=== PATIENT | male | born 1965 | race Caucasian/White ===

== ENCOUNTER 2016-06-28 06:13 | Inpatient (IN) | payer MEDICAID ==
[~2016-06-28 06:13] MED LIST: Buffered Lidocaine 1% SYRIN* 3 ML/SYR SYRINGE INTRADERM ONE; Dexamethasone IV* 4 MG/ML 1 ML (4 MG) IV SLOW PU ONE; Famotidine IV* 10 MG/ML 2 ML (20 mg) IV ONE
[2016-06-28] MEDS ORDERED: Dexamethasone IV* 4 MG/ML 1 ML (4 MG) ONE (06:21)
[2016-06-28] MEDS ORDERED: Famotidine IV* 10 MG/ML 2 ML (20 mg) ONE (06:21)
[2016-06-28] MEDS ORDERED: ceFAZolin 2 GM PREMIX(*) 2 GM/50 ML BAG IVPB ONE (06:21)
[2016-06-28] MEDS ORDERED: Gabapentin CAP(*) 300 MG ONE (06:55)
[2016-06-28] MEDS ORDERED: fentaNYL* 50 MCG/ML 2 ML VIAL (100 MCG VIAL) ONE ×3 (06:55→10:07)
[2016-06-28] MEDS ORDERED: Lidocaine 1% MPF wEPI 200,000* 30 ML SDV ONE (06:55)
[2016-06-28] MEDS ORDERED: Thrombin 5,000 UNITS* 1 APPLIC KIT - topical use - TOPICAL ONE (06:55)
[2016-06-28] MEDS ORDERED: Bacitracin IV* 50,000 UNITS INJ ONE (06:56)
[2016-06-28] MEDS ORDERED: Midazolam* 1 MG/ML 5 ML VIAL (5 MG) ONE (07:15)
[2016-06-28] MEDS ORDERED: Atracurium* 10 MG/ML 10 ML VIAL ONE (07:15)
[2016-06-28] MEDS ORDERED: Propofol* 10 MG/ML 20 ML BTL IV PUSH ONE (07:15)
[2016-06-28] MEDS ORDERED: Lidocaine 2% PF* 5 ML VIAL ONE (07:15)
[2016-06-28] MEDS ORDERED: Ondansetron INJ* 2 MG/ML VIAL ONE (07:15)
[2016-06-28] MEDS ORDERED: fentaNYL* 50 MCG/ML 5 ML VIAL (250 MCG VIAL) ONE (07:15)
[2016-06-28] MEDS ORDERED: Levalbuterol 0.63MG/3ML NEB INH ONE (07:30)
[2016-06-28] MEDS ORDERED: fentaNYL* 50 MCG/ML 2 ML VIAL (100 MCG VIAL) IV SLOW PU ONE (07:31)
[2016-06-28] MEDS ORDERED: Gabapentin CAP(*) 300 MG PO ONE (07:31)
[2016-06-28] MEDS ORDERED: Levalbuterol 1.25MG/0.5ML NEB ONE (07:34)
[2016-06-28] MEDS ORDERED: DiMENhydriNATE IV* 50 MG/ML VIAL IV PUSH PRN (07:35)
[2016-06-28] MEDS ORDERED: Ondansetron INJ* 2 MG/ML VIAL IV PRN ×2 (07:35→09:49)
[2016-06-28] MEDS ORDERED: EPHEDrine (Pressors)* 50 MG/ML VIAL ONE (08:33)
[2016-06-28] MEDS ORDERED: Glycopyrrolate IV* 0.2 MG/ML 1 ML VIAL ONE (08:39)
[2016-06-28] MEDS ORDERED: Magnesium Hydroxide LIQ* 30 ML UDC PO PRN (09:49)
[2016-06-28] MEDS ORDERED: Acetaminophen TAB* 325 MG PO PRN (09:49)
--- NOTE | 2016-06-28 09:59 | RAD ---
INDICATION: Revision of ACDF COMPARISON: CT cervical spine July 31, 2009 Technique/findings: A single crosstable lateral cervical spine images is submitted. One of the images is annotated and shows retractors in place with a needle projected over the C5-C6 disc interspace.
[2016-06-28] MEDS ORDERED: glipiZIDE TAB* 5 MG PO SCH (10:00)
[2016-06-28] MEDS: fentaNYL* 50 MCG/ML 2 ML VIAL (100 MCG VIAL) IV PRN ×2 (10:11→10:20)
[2016-06-28] MEDS ORDERED: HYDROmorphone* 1 MG/ML 1 ML SYR ONE (10:24)
[2016-06-28] MEDS: HYDROmorphone* 1 MG/ML 1 ML SYR IV PRN ×3 (10:26→11:06)
[2016-06-28] MEDS ORDERED: HYDROmorphone PCA* 20 MG/20 ML PCA.SYRING ONE (11:27)
[2016-06-28] MEDS: HYDROmorphone PCA* 20 MG/20 ML PCA.SYRING PCA SCH ×2 (11:41→23:04)
--- NOTE | 2016-06-28 11:43 | RAD ---
INDICATION: Status post anterior cervical discectomy and fusion COMPARISON: Comparison is made with a prior CT of the cervical spine from October 19, 2005 and a prior MRI of the cervical spine from July 25, 2015. TECHNIQUE: Contiguous axial sections were obtained from the skull base through the T2 vertebra. Images were reconstructed in the sagittal and coronal planes. FINDINGS: There is straightening of the cervical spine. The vertebra are otherwise in normal alignment. The patient is status post anterior cervical discectomy and fusion earlier today at the C5-C6 level. There is anterior soft tissue swelling consistent with the patient's recent surgery. There is a metallic plate present anterior to the vertebral bodies transfixed with surgical screws at each level. There is a prosthesis within the intervertebral disc space. There is a small amount of air within the spinal canal and in the anterior soft tissues of the neck on the right side consistent with the patient's surgery. There is also surgical drain present anterior to the C5-C6 vertebra. The patient is status post remote cervical fusion at the C6-C7 level. There is bone graft material within the C6-C7 disc space which appears fused with the vertebral bodies. There has been removal of the hardware at this level. Evaluation of the spinal canal at the C5-C6 surgical level is limited due to metallic artifact. No gross hematoma is seen. There is moderate spinal canal narrowing at the C6-C7 level. IMPRESSION: POSTSURGICAL CHANGES DESCRIBED.
[2016-06-28] MEDS: oxyCODONE TAB* 5 MG TAB PO SCH ×4 (13:00→20:58)
[2016-06-28] MEDS ORDERED: Dextrose 50% Syringe 50 ML* 25 GM/50 ML SYRINGE IV PUSH PRN (13:00)
[2016-06-28] MEDS: Carisoprodol TAB* 350 MG PO SCH ×3 (13:01→20:59)
[2016-06-28] MEDS: Gabapentin CAP(*) 300 MG PO SCH ×2 (14:19→20:58)
[2016-06-28] MEDS ORDERED: Benzocaine/Menthol LOZ* 1 LOZENGE PO PRN (15:15)
[2016-06-28] MEDS: Insulin LISPRO* 1 UNITS UNIT SUBCUT SCH (17:07)
[2016-06-28] MEDS: Gemfibrozil TAB* 600 MG PO SCH (20:58)
[2016-06-28] MEDS ORDERED: Gabapentin CAP(*) 400 MG PO SCH (21:00)
--- NOTE | 2016-06-28 21:24 | CONS ---
MEDICAL CONSULTATION REPORT: DATE OF CONSULTATION: 06/28/16 PRIMARY CARE PROVIDER: Dr. Cat. REQUESTING PROVIDER: Dr. Dave. CONSULTING PROVIDER: TRAVIS Reaves. SUPERVISING PHYSICIAN: Ray Tee MD. CHIEF COMPLAINT: Status post C5-6 diskectomy. HISTORY OF PRESENT ILLNESS: This is a 51-year-old gentleman with a history of chronic neck and back pain as well as non-insulin dependent diabetes who underwent cervical spine surgery with Dr. Dave earlier today. Dr. Dave has requested consultation from hospitalist group regarding his diabetes management during his hospital stay. The patient uses Janumet and glipizide at home for diabetes management. The patient has been working on dietary strategies. He recently stopped drinking soda and has been drinking sparkling water instead. He also states that he recently quit drinking alcohol and is motivated to quit smoking after this hospitalization. The patient states that his fasting blood sugar is generally between 150 and 200 mg/dL and his pre-dinner glucose is usually between 200 and 300 mg/dL. The patient denies any other significant complications related to his diabetes. He is unsure of what his last hemoglobin A1c was. PAST MEDICAL HISTORY: 1. Chronic neck and back pain, followed by Dr. Melendrez for pain management. 2. Non-insulin dependent diabetes. PAST SURGICAL HISTORY: 1. Prior cervical spine surgery. 2. Colostomy with reversal for history of severe diverticulitis. 3. Tonsillectomy. 4. Hernia repair. HOME MEDICATIONS: 1. Soma 350 mg p.o. 4 times a day. 2. Neurontin 300 mg p.o. t.i.d. 3. Gabapentin 400 mg p.o. at bedtime. 4. Gemfibrozil 600 mg p.o. b.i.d. 5. Janumet , 1 tablet p.o. b.i.d. 6. Glipizide 5 mg p.o. twice daily. 7. Oxycodone 10 mg p.o. q.4 hours as needed for pain. SOCIAL HISTORY: The patient is single and lives alone. He has a greater than 30- pack-year smoking history with motivation to quit, stating that his last cigarette was at 5:30 this morning. He has now been sober for 9 months and the patient is currently unemployed, receiving disability. 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 REVIEW OF SYSTEMS: As listed above in HPI and otherwise negative. PHYSICAL EXAMINATION: Most recent vitals: Temperature is 98.2 degrees Fahrenheit, pulse 86 beats per minute, respiratory rate is 17 per minute, oxygen saturation 98% on 3 L, blood pressure 144/77 mmHg. General: This is a well-appearing middle aged gentleman in no acute distress. HEENT: Head is normocephalic and atraumatic. Neck: Surgical dressing is in place over the right anterior lateral neck. Cardiovascular: Heart has a regular rate and rhythm without murmurs, rubs, or gallops. Respiratory: Lungs are clear to auscultation without wheezes, crackles, or rhonchi. Abdomen: Soft and nontender to palpation. Extremities: No edema appreciated. Psych: The patient is alert and appropriately oriented. LABORATORY DATA: Reviewed labs from 06/21/16, which were essentially within normal limits including a CBC and basic metabolic panel. Last hemoglobin A1c available for review is June 2015, which was 8.5% at that time. IMAGING: Chest x-ray, 06/21/16, shows no acute process. EKG shows a normal sinus rhythm. ASSESSMENT AND PLAN: This is a 51-year-old gentleman with non-insulin dependent diabetes and chronic neck and back pain who underwent C5-[address] Dave earlier today. Hospitalist group has been consulted for diabetes management during his postoperative period. 1. Status post C5-6 diskectomy - management per Neurosurgery including discharge planning, pain management, and DVT prophylaxis. 2. Non-insulin dependent diabetes - from patient's description he sounds like he has moderate control of his diabetes at baseline. I recommend holding his Janumet and glipizide during his hospital stay and covering with sliding scale Humalog at mealtime. I also ordered a basic metabolic panel and hemoglobin A1c for tomorrow morning. He can likely resume his typical regimen upon discharge. He is interested in further education in regards to appropriate nutrition and a referral was initiated to a community health educator. If this is unable to take place during his hospitalization, I would recommend an outpatient referral to [facility] [place] for Healthy Living. 3. Morbid obesity with a BMI of 35. 4. Code status. The patient is full code. 5. Healthcare proxy is unknown. The patient does not have any family locally. 6. DVT prophylaxis. Per Dr. Dave, SCDs have been ordered. DISPOSITION: Hospitalist group will continue to follow along with this patient during his hospital stay. TRAVIS REAVES CC: Dr. Cat* [id number]/[facility] #: [id number] [facility]
[2016-06-29] MEDS: oxyCODONE TAB* 5 MG TAB PO SCH ×3 (01:08→09:40)
[2016-06-29 06:55] LABS: BUN/Creatinine Ratio 22.2 (8-20); Calcium 9.2 mg/dL (8.6-10.3); EGFR African American 149.2 (>60); Potassium 3.5 mmol/L (3.5-5.0)
--- NOTE | 2016-06-29 07:49 | PN ---
Progress Note - Progress Note SOAP: Subjective: [S/p revision of ACD F C6-7 and ACD F C5-6 with instrumentation. POD #1. Complains of neck soreness. Denies headache, nausea. He is eating and drinking without difficulty. He is ambulating well. ] Objective: [ Vital Signs: Temp Pulse Resp BP Pulse Ox 98.2 F 83 18 146/84 94 06/29/16 03:18 06/29/16 03:18 06/29/16 07:04 06/29/16 03:18 06/29/16 04:00 General: Alert and oriented. No distress. Neuro: Motor and sensory intact. Incision: Intact and without swelling or infection. JHON removed. Extremities: Full ROM throughout. JHON drain output 06/28/16 06/28/16 06/29/16 18:57 19:40 03:28 Output, JHON #1 20 10 10 ] Assessment: [Satisfactory post-op course. ] Plan: [1. Discharge home today. 2. Discharge instructions discussed. ]
[2016-06-29 08:34] VITALS: BP 136/76
[2016-06-29] MEDS: Carisoprodol TAB* 350 MG PO SCH (09:40)
[2016-06-29] MEDS: Gemfibrozil TAB* 600 MG PO SCH (09:41)
[2016-06-29] MEDS: Gabapentin CAP(*) 300 MG PO SCH (09:41)
[2016-06-29] MEDS: Insulin LISPRO* 1 UNITS UNIT SUBCUT SCH (09:41)
--- NOTE | 2016-06-29 10:02 | CONSULT ---
Subjective Reason for Visit: neck surgery Admission Date: 06/28/16 Glucose Level On Admission: 269 History Of Present Illness: Mr. Haynes is a 51 year old gentleman, admitted 06/28/16 for elective C5-[address] Dave. The hospitalist group was consulted as part of his postoperative care and they requested diabetes education. Mr. Haynes reports that he was diagnosed with type II diabetes in 2014. He was started on Janumet and Glipizide. He reports gaining a significant amount of weight when he started these medications, and in fact, attributes that weight gain to his poor diabetes control. He has not had any formal diabetes education. He mointors his blood glucose twice daily, at 6:00 am and 6:00 pm. He does not check a postprandial blood glucose. He was a heavy drinker, reportedly drinking 2 liters of vodka with cranberry juice a day, but stopped drinking alcohol completely 9 months ago. He reports that his blood glucose has become better controlled since abstaining from alcohol. His fasting blood glucose is typically in the 200 range. His blood glucose just before dinner is 160-230. He does not check a postprandial blood glucose. He has good hypogylcemic and hyperglycemic awareness. He has been working to improve his diet by drinking seltzer water instead of soda and not eating fast food. He smoked his last cigarette on 06/28/16 just prior to admission to the hospital, and plans on not smoking when he is discharged. He wants to quit smoking "cold turkey", as he has had negative side effects from Chantix in the past. Patient History Surgical History: Yes Surgery Procedure, Year, and Place: Surgery to remove large portion of large intestine r/t intestinal polyps, micro ulcers and perforations. c6-8 fx - titanium plates, screws, cadaver bone and lucite disk. APPENDIX 04. hernia ' . wisdom teeth extracted-. tosillectomy/ adenoids-for sleep apnea . 06/2014-COLOSTOMY D/T DIVERTICULITIS- [facility] [place]. COLOSTOMY REVERSAL 12/2015. KIDNEY STENT AND THEN REMOVED Lives With: Self Marital Status: Single Preferred/Primary Language: Yi Employed/Unemployed: Unemployed - disability Hx Tobacco Use: Yes - pt states that he smoked his last cigarette 06/28 Exercise: limited due to pain related to neck injury Review Of Systems - Review of Systems Constant: No Weight Loss, No Poor Appetite Endocrine: - - reports polyuria and polydipsia Objective Allergies Allergy/AdvReac Type Severity Reaction Status Date / Time No Known Allergies Allergy Verified 06/28/16 06:28 Home Medications Medication Instructions Recorded Confirmed Type Carisoprodol TAB* [Soma TAB*] 350 mg PO QID 03/31/14 06/28/16 History oxyCODONE TAB* [Roxycodone TAB 5 10 mg PO Q4H 06/28/14 06/28/16 History mg*] glipiZIDE TAB* [Glucotrol TAB*] 5 mg PO SEE INSTRUCTIONS 07/20/15 06/28/16 History Gemfibrozil TAB* [Lopid TAB*] 600 mg PO BID 10/19/15 06/28/16 History Gabapentin CAP(*) [Neurontin 300 300 mg PO TID 01/31/16 06/28/16 History CAP(*)] Gabapentin TAB(NF) [Neurontin 600 400 mg PO BEDTIME 01/31/16 06/28/16 History mg TAB(NF)] Sitagliptin-Metformin HCl [Janumet 1 tab PO BID 06/21/16 06/28/16 History 50-1000 mg] oxyCODONE TAB* [Roxycodone TAB 5 10 mg PO Q4H #60 tab MDD 12 06/29/16 Rx mg*] Hospital Medications: Current Medications Acetaminophen (Tylenol Tab*) 650 mg PO Q4H PRN PRN Reason: PAIN Carisoprodol (Soma Tab*) 350 mg PO QID [facility] Last Admin: 06/29/16 09:40 Dose: 350 mg Dextrose (D50w Syringe 50 Ml*) 12.5 gm IV PUSH .FOR FS < 60 - SS PRN PRN Reason: FS < 60 Gabapentin (Neurontin Cap(*)) 300 mg PO TID [facility] Last Admin: 06/29/16 09:41 Dose: 300 mg Gabapentin (Neurontin Cap(*)) 400 mg PO BEDTIME [facility] Last Admin: 06/28/16 20:58 Dose: 400 mg Gemfibrozil (Lopid Tab*) 600 mg PO BID [facility] Last Admin: 06/29/16 09:41 Dose: 600 mg Lactated Ringer's (Lactated Ringers 1000 Ml Bag*) 1,000 mls @ 75 mls/hr IV .per rate [facility] Last Admin: 06/29/16 00:19 Dose: 75 mls/hr Hydromorphone HCl (Dilaudid Electrical Prospector*) 20 mg in 20 mls @ 0 mls/hr DEVELOPER PROVER UPHOLSTERING .change Q24H [facility]; Per Protocol PRN Reason: Protocol Last Admin: 06/28/16 23:04 Dose: 0.5 mls/hr Insulin Human Lispro (Humalog*) 0 units SUBCUT AC [facility] PRN Reason: Protocol Last Admin: 06/29/16 09:41 Dose: 9 units Magnesium Hydroxide (Milk Of Magnesia Liq*) 30 ml PO DAILY PRN PRN Reason: CONSTIPATION Ondansetron HCl (Zofran Inj*) 4 mg IV Q6H PRN PRN Reason: NAUSEA/VOMITING Oxycodone HCl (Roxycodone Tab*) 10 mg PO Q4H [facility] Last Admin: 06/29/16 09:40 Dose: 10 mg Throat Lozenges (Chloraseptic Shari*) 1 shari PO Q6H PRN PRN Reason: SORE THROAT Lab Data: Sodium 132 mmol/L (133-145) L 06/29/16 06:08 Potassium 3.5 mmol/L (3.5-5.0) 06/29/16 06:08 BUN 16 mg/dL (6-24) 06/29/16 06:08 Creatinine 0.72 mg/dL (0.67-1.17) 06/29/16 06:08 Hemoglobin A1c 8.2 % (Less than 6.0) H 06/29/16 06:08 Calcium 9.2 mg/dL (8.6-10.3) 06/29/16 06:08 Vital Signs: Vital Signs 06/29/16 06/29/16 06/29/16 03:08 03:18 04:00 Temperature 36.8 C Pulse Rate 83 Respiratory 16 20 14 Rate Blood Pressure 146/84 (mmHg) O2 Sat by Pulse 99 94 Oximetry 06/29/16 06/29/16 06/29/16 05:04 06:30 07:04 Temperature Pulse Rate Respiratory 16 16 18 Rate Blood Pressure (mmHg) O2 Sat by Pulse Oximetry 06/29/16 06/29/16 06/29/16 08:14 09:40 09:41 Temperature Pulse Rate 81 Respiratory 18 18 Rate Blood Pressure 136/76 (mmHg) O2 Sat by Pulse 96 Oximetry Height: 5 ft 10 in Weight: 111.13 kg Body Mass Index (BMI): 35.2 Physical Exam General Appearance: Positive: Alert, Oriented x3, OOB Sitting In Chair Respiratory: Positive: Non-Labored Abdomin: Positive: Obese Skin: Wounds - surgical site right anterior cervial neck with dressing that is c /d/i Plan Of Care Patient's Next Step: Discharged to home per neuro Next Visit: patient will call Referral To: [facility] For Further OutPT Diabetic Training - and tobacco cessation counseling, DSME Diagnosis: type II diabetes with hyperglycemia Discharge Plan: Pt will be d/c to home per neuro. He has a significant knowledge deficit related to diabetes and nutrition. We discussed what foods contain carbohydrates and how to read nutrition labels. We discussed the recommended dietary intake of carbohydrates at meals and snacks and he was given a sample meal plan. I recommended that he continue to check his fasting blood glucose every morning, but that he also check a postprandial blood glucose. I gave him goal numbers. Adding a drug such as Trulicity instead of or in addition to Glipizide would be helpful in achieving better glucose control and helping with weight loss, and this could be discussed with the patient's PCP at a later date. I recommend that he follow up at [facility] for more in depth diabetes education , weight loss, smoking cessation and for DSME. He is interested in this and will call to schedule an appointment. Education Prior Diabetic Education: No Education Provided: Blood Glucose Monitoring, When To Seek Medical Attention Handouts Provided: living well with diabetes, 60 gram of carbohydrate meal plan, goals Goals Goals: According to the [place] [employer], the following are your goals for Hemaglobin A1C, Blood Glucose. Hemaglobin A1C * <7.0% for most * <6.5% for "healthy" * <8.0% for "Less Healthy" Blood Glucose * Fasting Blood Glucose: 80-130 mg/dl * 2 Hour Post Prandial Glucose <180 mg/dl
--- NOTE | 2016-06-29 11:05 | PN ---
Subjective Date of Service: 06/29/16 Interval History: Patient was discharged prior to re-evaluation this am. Reviewed nursing notes and vitals from overnight, no acute concerns. Objective Active Medications: Discharge/Home medications: Carisoprodol TAB* [Soma TAB*] 350 mg PO QID 03/31/14 [History Confirmed ] oxyCODONE TAB* [Roxycodone TAB 5 mg*] 10 mg PO Q4H 06/28/14 [History Confirmed 06/28/16] glipiZIDE TAB* [Glucotrol TAB*] 5 mg PO SEE INSTRUCTIONS 07/20/15 [History Confirmed 06/28/16] Gemfibrozil TAB* [Lopid TAB*] 600 mg PO BID 10/19/15 [History Confirmed ] Gabapentin CAP(*) [Neurontin 300 CAP(*)] 300 mg PO TID 01/31/16 [History Confirmed 06/28/16] Gabapentin TAB(NF) [Neurontin 600 mg TAB(NF)] 400 mg PO BEDTIME 01/31/16 [ History Confirmed 06/28/16] Sitagliptin-Metformin HCl [Janumet 50-1000 mg] 1 tab PO BID 06/21/16 [History Confirmed 06/28/16] oxyCODONE TAB* [Roxycodone TAB 5 mg*] 10 mg PO Q4H #60 tab MDD 12 06/29/16 [Rx] Vital Signs: Temp Pulse Resp BP Pulse Ox 98.2 F 81 18 136/76 96 06/29/16 03:18 06/29/16 08:14 06/29/16 09:41 06/29/16 08:14 06/29/16 08:14 Appearance: Exam was not completed Result Diagrams: 06/29/16 06:08 Assess/Plan/Problems-Billing Assessment: This is a 51 yo gentleman with uncontrolled NIDDM, obesity and chronic pain who underwent cervical spine surgery with Dr Dave yesterday. Hospitalist group was consulted for DM management. - Patient Problems (1) Cervical disc disease Comment: s/p C5/6 discectomy Discharge by neurosurgery today (2) Diabetes Comment: Non-insulin dependent Poorly controlled HgbA1c 8.2% Patient is very motivated to get better control of his DM Initiated referral to DM educator and patient will follow up at [facility] (3) Obesity Comment: BMI 35 Motivated to pursue weight loss measures (4) History of alcoholism Comment: Now sober for ~9 months (5) Chronic pain Comment: Followed by Dr Melendrez (6) Tobacco abuse disorder Comment: Patient is motivated to quit smoking He would like to do this "cold turkey", denied need for nicotine replacement during hospitalization and at discharge Status and Disposition: Discharge by neurosurgery today. No changes made to home medications. Recommend close follow up with PCP and [facility] for DM management and support smoking cessation.
--- NOTE | 2016-07-03 08:30 | OP ---
DATE OF OPERATION: 06/28/16 - ROOM #338 DATE OF : 69 PRIMARY SURGEON: Dr. Janak Dave. INSURANCE ACCOUNT REPRESENTATIVE: TRAVIS Merchant. ANESTHESIOLOGIST: Orlando Medellin MD ANESTHESIA: General. PRE-OP DIAGNOSIS: Herniated nucleus pulposus, C5-6. POST-OP DIAGNOSIS: Herniated nucleus pulposus, C5-6. OPERATIVE PROCEDURE: Revision of prior anterior cervical diskectomy and fusion C6- 7 with removal of anterior instrumentation, anterior cervical diskectomy and fusion C5-6 with anterior instrumentation, placement of PEEK graft, C5-6. DESCRIPTION OF PROCEDURE: After satisfactory general anesthesia was obtained, the patient was placed on the operating room table in the supine position with the head maintained on a donut headrest and the neck slightly extended. The anterior aspect of the cervical spine was clipped, prepped, and draped in a sterile manner for anterior cervical exposure. A skin incision was outlined at the midline, extending to the right side, distance of 3 cm. This incision was infiltrated with 1% Xylocaine with epinephrine after extending sharply to the subcutaneous tissues. A superiorly and inferiorly based subcutaneous flap was then fashioned and the platysma muscle divided along the direction of its fibers. The patient had undergone a previous anterior cervical diskectomy and a fusion at C6-7. The initial exposure revealed a plate surrounded by scar tissue, which was dissected free. An x-ray was obtained, verifying proper interspace localization, after which the plate was skeletonized and removed by first removing the screws and then the plate. Self-retaining retractors were placed to facilitate exposure at the C5-6 level. The initial step at this level was removal of the anterior two-thirds disk material, which was done with a combination of the [place] drill, angled curettes and pituitary rongeurs. [place] distractor pins were then placed in the C5 and C6 vertebral bodies and gentle disk space distraction applied. The operating microscope was then brought into the field and the remainder of the procedure done under microscopic visualization. Projecting back posteriorly, there were multiple fragments of extruded disk material causing significant cord compression. The interspace was decompressed utilizing microdissection until both the C6 nerve roots were free in their course. A PEEK graft measuring 8 mm in height and filled with bony matrix was then placed in the interspace and slightly countersunk. [employer]onic [place] plate was then selected to span from C5 to C6 and was secured into position with 14- mm and 15-mm self-drilling screws. A drain was placed in the prevertebral space and tunneled out through the right side. The subcutaneous tissues were then reapproximated with 3-0 Vicryl and the skin closed with Steri-Strips. The estimated blood loss was less than 50 cc and the final sponge, padding, and needle counts were correct. The patient was taken to the recovery room, extubated, and in stable condition. [id number]/[facility] #: [id number] [facility]ENTERLacy
--- NOTE | 2016-07-05 01:28 | DS ---
DISCHARGE SUMMARY: DATE OF ADMISSION: 06/28/16 DATE OF DISCHARGE: 06/29/16 DISCHARGE DIAGNOSES: 1. Cervical disk displacement, C5-6. 2. Diabetes. 3. History of anterior cervical diskectomy and fusion, C6-7. SPECIAL PROCEDURE: Revision of anterior cervical diskectomy and fusion, C6-7, with anterior cervica l diskectomy and fusion C5-6 with anterior instrumentation. HOSPITAL COURSE: This 51-year-old male was seen in office with complaints of persistent neck pain a nd radiculopathy that has failed to improve since previous ACDF at C6-7. Treatment was discussed an d the patient was not interested in surgery at that time. He returned 1 year later and discussed fu rther treatment options. He is admitted at this time for elective surgical intervention. On the da y of admission, he was taken to surgery, where under general anesthesia, a revision of ACDF at C6-7 with ACDF at C5-6 with instrumentation operation was carried out. Postoperatively, he was feeling w ell with oral and IV pain medication. He complained of posterior neck discomfort from the incision. He is ambulating independently. He is eating, drinking, and voiding without difficulty. On the fi rst postoperative day, the incisional drain was removed and the patient was [facility]. DISCHARGE INSTRUCTIONS: Discharge instructions including wound care and activity level were discuss ed with the patient. He will be seen in office in approximately 2 weeks for followup. DISCHARGE MEDICATIONS: None. TRAVIS MCNALLY [id number]/[facility] #: [id number]
== END 2016-06-29 10:28 | disposition home or self-care (01) | DRG 23 ==
LOC: AA 06:13 → INTOOBSV 06:13 → OBSVTOIN 09:56 → SSU 12:11
PROVIDERS: ADMIT Neurological Surgery; ATTEND Neurological Surgery
PROC: 0RG10A0 Fusion of Cervical Vertebral Joint with Interbody Fusion Device, Anterior Approach, Anterior Column, Open Approach (ICD-10-PCS; 2016-06-28)
PROC: 0PP304Z Removal of Internal Fixation Device from Cervical Vertebra, Open Approach (ICD-10-PCS; 2016-06-28)
PROC: 0RB30ZZ Excision of Cervical Vertebral Disc, Open Approach (ICD-10-PCS; principal; 2016-06-28 07:45)
DX: M50.122 Cervical disc disorder at C5-C6 level with radiculopathy (principal); E11.65 Type 2 diabetes mellitus with hyperglycemia; F17.210 Nicotine dependence, cigarettes, uncomplicated; E66.9 Obesity, unspecified; G89.29 Other chronic pain; F10.21 Alcohol dependence, in remission; Z68.35 Body mass index [BMI] 35.0-35.9, adult; Z79.891 Long term (current) use of opiate analgesic; Z79.84 Long term (current) use of oral hypoglycemic drugs; Z79.899 Other long term (current) drug therapy
CPT/HCPCS: 36415; 72020; 72125; 80048; 83036; 88300; 88304; 94760; 99252; A9270-GY; C1713; C1776; J0690; J1100; J1170; J2001; J2250; J2270; J2405; J2704; J3010

== ENCOUNTER 2016-08-13 04:24 | Emergency (ER) | payer MEDICAID ==
[2016-08-13] MEDS ORDERED: HYDROmorphone* 2 MG/ML 1 ML SYR IM ONE (04:45)
[2016-08-13] MEDS ORDERED: predniSONE TAB* 20 MG PO ONE (04:49)
[2016-08-13] MEDS ORDERED: Ketorolac INJ* 60 MG/2 ML VIAL IM ONE (05:06)
[2016-08-13 06:59] VITALS: BP 104/67
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
== END 2016-08-13 06:58 | disposition home or self-care (01) ==
LOC: ED 04:24
DX: F11.20 Opioid dependence, uncomplicated (principal); M54.30 Sciatica, unspecified side; R07.9 Chest pain, unspecified; M25.552 Pain in left hip
CPT/HCPCS: 96372; 99282; J1170; J1885; J7512

== ENCOUNTER 2017-04-14 00:59 | Emergency (ER) | payer MEDICAID ==
[2017-04-14] MEDS ORDERED: Clindamycin CAP* 150 MG PO ONE (02:06)
[2017-04-14] MEDS ORDERED: Levofloxacin TAB* 500 MG PO ONE (02:06)
[2017-04-14] MEDS ORDERED: Lidocaine 1%* 5 ML VIAL ONE (02:15)
[2017-04-14] MEDS ORDERED: Lidocaine 2% EPI 1:200000 MPF* 20 ML VIAL ONE (02:15)
[2017-04-14] MEDS ORDERED: Lidocaine 1% INJ* 10 MG/ML 30 ML SDV ONE ×2 (02:17)
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
[2017-04-14 04:18] VITALS: BP 143/80
--- NOTE | 2017-04-16 09:32 | ED ---
Progress - Progress Note Progress Note: Prelim wound cx reveals MRSA - pt started on clindamycin. No changes at this time. Re-Evaluation - Re-Evaluation First Eval Re-Evaluation Time: 03:20 Comment: Performed I&D at patient's request, see procedure note. Course/Dx - Diagnoses Provider Diagnoses: Cellulitis of right index finger
== END 2017-04-14 04:09 | disposition home or self-care (01) ==
LOC: ED 00:59
DX: L03.011 Cellulitis of right finger (principal); E11.9 Type 2 diabetes mellitus without complications; Z87.442 Personal history of urinary calculi; F41.9 Anxiety disorder, unspecified; Z87.891 Personal history of nicotine dependence
CPT/HCPCS: 10060; 87070; 87077; 87186; 87205; 99282; A9270-GY

== ENCOUNTER 2017-04-16 09:43 | Day surgery (SDC) | payer MEDICAID ==
--- NOTE | 2017-04-15 19:56 | HP ---
HISTORY AND PHYSICAL: DATE OF ADMISSION/SURGERY: 04/16/17 PROVIDER: Prachi Steele MD * (DICTATED BY TRAVIS MANTILLA) HISTORY OF PRESENT ILLNESS: Mr. Haynes is a 52-year-old male who presents today to the office for cellulitis of the right index finger. The patient states that on 04/10/17, he noticed that the finger was getting swollen and he was having trouble bending it. He states that on Saturday04/12/17, it started to become painful. He states that Saturday, he was soaking it with warm water and warm compresses when he noticed that it opened up a little and started to drain pus and clear fluid. On Saturday morning at 12: 15, he went to the urgent care where he had the abscess lanced and packed. He was diagnosed with cellulitis and placed on 2 antibiotics, clindamycin 300 mg and levofloxacin 500 mg. He was told to follow up with Orthopedics, which he is doing today. He states that he does have a cat and he has multiple scratches on his skin bilaterally. He states that he has had stiffness in the fingers for a couple of weeks, but did not think much of it until it started to worsen this past Saturday. He denies any numbness or tingling. He denies any fevers or night sweats. He does admit to some chills that occurred when he came home from the hospital on Saturday during the day, but he said that he put himself in a blanket and did not have any issue after that. PAST MEDICAL HISTORY: 1. Diabetes. 2. Chronic pain. 3. Irritable bowel syndrome. PAST SURGICAL HISTORY: 1. Tonsillectomy, early . 2. Emergency appendectomy, 2003. 3. Resection of a portion of large intestine and partial colon with placement of a colostomy bag, 2004. 4. Removal of colostomy bag and anastomosis, 2004. 5. C-spine fusion with 4-hole plate, 2005. 6. Kidney stent in 2016 for kidney stones and subsequent removal of kidney stent. 7. July 08, 2016, C-spine revision fusion with 6-hole plate. MEDICATIONS: 1. Janumet . 2. Gemfibrozil 600 mg. 3. Glipizide 5 mg. 4. Oxycodone 10 mg. 5. Soma 350 mg. 6. Gabapentin 100 mg. 7. Medical marijuana vaporized. 8. Clindamycin 300 mg. 9. Levofloxacin 500 mg. ALLERGIES: No known drug allergies. SOCIAL HISTORY: The patient was alone, has a cat and is disabled from work. He does not smoke. He does not drink, being alcohol free for 17 months. He has no illicit drug use. He admits to medical marijuana use. REVIEW OF SYSTEMS: General: The patient admits to chills. Denies fevers or night sweats. No known anesthesia problems. HEENT: The patient denies any headaches, lightheadedness or syncopal episodes. Cardiothoracic: The patient denies any chest pain, heart palpitations or edema. Pulmonary: The patient denies any shortness of breath with exertion and chronic osteopenia. GI: The patient denies any nausea, vomiting, diarrhea or constipation. : The patient denies any nocturia, urinary frequency or urgency. MSK: The patient admits to a painful right index finger with drainage and admits to chronic neck pain. Neuro: The patient denies any numbness or paresthesias. Integument: The patient denies any abrasions, lesions, rashes or open sores. PHYSICAL EXAMINATION GENERAL: The patient is alert and oriented x3 with appropriate mood and affect , appropriate dress and hygiene. HEENT: Normocephalic, atraumatic. Hearing and vision grossly intact. CARDIO: Regular rate and rhythm. Normal S1 and S2. No appreciable S3 or S4. No murmurs, rubs or gallops. PULMONARY: Lungs are clear to auscultation bilaterally with no wheezes, rales or rhonchi. MUSCULOSKELETAL: Inspection of right index finger revealed an abscess of the radial portion of the index finger between the MCP and PIP joint. There is marked swelling and erythema. Decreased range of motion. He does have a 2+ radial pulse. He is a little tender over the radial side of the wrist also. He has some erythema extending down to the wrist very lightly. IMPRESSION: Cellulitis of the right index finger. PLAN: The patient will undergo a right index finger incision and drainage tomorrow on 04/16/17. He was encouraged to continue taking his antibiotics and to stop eating at midnight tonight. The patient will return postoperatively for followup on , 04/18/17, for reevaluation. We will see the patient in the OR tomorrow. TRAVIS MANTILLA [id number]/[facility] #: [id number] [facility]CARELacy
[~2017-04-16 09:43] MED LIST changes: +Buffered Lidocaine 0.9% SYRIN* 5 ML/SYR SYRINGE INTRADERM ONE; -Buffered Lidocaine 1% SYRIN* 3 ML/SYR SYRINGE INTRADERM ONE; -Dexamethasone IV* 4 MG/ML 1 ML (4 MG) IV SLOW PU ONE; +Lidocaine 1% INJ* 10 MG/ML 30 ML SDV ONE; +Metoclopramide TAB* 10 MG PO ONE; +Naloxone* 0.4 MG/ML 1 ML VIAL IV PRN; +Ondansetron INJ* 2 MG/ML VIAL IV PRN; +fentaNYL* 50 MCG/ML 2 ML VIAL (100 MCG VIAL) IV PRN; +oxyCODONE/Acetamin 5/325 MG* TAB PO PRN
[2017-04-16] MEDS ORDERED: Famotidine IV* 10 MG/ML 2 ML (20 mg) ONE ×2 (10:04)
[2017-04-16] MEDS ORDERED: Metoclopramide TAB* 10 MG ONE ×2 (10:04)
[2017-04-16] MEDS ORDERED: ceFAZolin 2 GM PREMIX (*) 2 GM/50 ML BAG IVPB ONE ×2 (10:10)
[2017-04-16] MEDS ORDERED: Ondansetron INJ* 2 MG/ML VIAL ONE ×2 (10:56)
[2017-04-16] MEDS ORDERED: Lidocaine 2% PF * 5 ML VIAL ONE ×2 (10:56)
[2017-04-16] MEDS ORDERED: Midazolam* 1 MG/ML 2 ML VIAL (2 MG) ONE ×2 (10:56)
[2017-04-16] MEDS ORDERED: Propofol* 10 MG/ML 20 ML BTL IV PUSH ONE ×2 (10:56)
[2017-04-16] MEDS ORDERED: fentaNYL* 50 MCG/ML 2 ML VIAL (100 MCG VIAL) ONE ×2 (10:56)
[2017-04-16 12:40] VITALS: BP 109/70
--- NOTE | 2017-04-17 03:41 | OP ---
DATE OF OPERATION: 04/16/17 - [facility] DATE OF : 69 SURGEON: Prachi Steele MD ENGRAVER LETTER: TRAVIS Joe ANESTHESIA: Local MAC. PRE-OP DIAGNOSIS: Abscess of the right index finger. POST-OP DIAGNOSIS: Abscess of the right index finger. OPERATIVE PROCEDURE: I and D of the right index finger. ESTIMATED BLOOD LOSS: Zero. TOURNIQUET TIME: About 10 minutes. INDICATIONS FOR PROCEDURE: Avni is a 52-year-old male who developed an abscess on the radial aspect of his right index finger. It was incised at the [facility] but he has persistent drainage. He presents for I and D of the right index finger. DESCRIPTION OF PROCEDURE: The patient was brought to the operating room, was given a sedation anesthetic and a digital block with 10 cc of 1% plain lidocaine. The skin of his right hand and forearm was prepped and draped in the usual sterile fashion. The hand and forearm were exsanguinated and the tourniquet elevated to 250 mmHg. A longitudinal incision was made on the radial border of the index finger. We dissected bluntly through the subcutaneous tissue preserving the digital nerve and artery. The flexor tendon sheath was encountered and incised longitudinally, a very small portion. There was no pus in the flexor tendon sheath and that was consistent with his exam. The wound was copiously irrigated with a liter of saline and then loosely closed with 4-0 nylon suture and dressed with Xeroform, 4x4, Webril, and Coban. The patient tolerated the procedure well, was brought to the recovery room in good condition. [id number]/[facility] #: [id number] [facility]ALTH[facility]ARE SYSTEMLacy
== END 2017-04-16 11:57 | disposition home or self-care (01) ==
LOC: OREAST 09:43
PROVIDERS: ATTEND Orthopaedic Surgery
DX: L02.511 Cutaneous abscess of right hand (principal); E11.9 Type 2 diabetes mellitus without complications; Z79.84 Long term (current) use of oral hypoglycemic drugs; G89.4 Chronic pain syndrome; K58.9 Irritable bowel syndrome, unspecified; Z72.0 Tobacco use; M19.90 Unspecified osteoarthritis, unspecified site
CPT/HCPCS: 87070; 87073; 87077; 87186; 87205; A9270-GY; J0690; J2250; J2405; J2704; J3010

== ENCOUNTER 2017-08-22 11:24 | Day surgery (SDC) | payer MEDICAID ==
[~2017-08-22 11:24] MED LIST changes: -Famotidine IV* 10 MG/ML 2 ML (20 mg) IV ONE; -Lidocaine 1% INJ* 10 MG/ML 30 ML SDV ONE; -Metoclopramide TAB* 10 MG PO ONE; -Naloxone* 0.4 MG/ML 1 ML VIAL IV PRN; -Ondansetron INJ* 2 MG/ML VIAL IV PRN; -fentaNYL* 50 MCG/ML 2 ML VIAL (100 MCG VIAL) IV PRN; -oxyCODONE/Acetamin 5/325 MG* TAB PO PRN
[2017-08-22] MEDS ORDERED: ceFAZolin 2 GM PREMIX (*) 2 GM/50 ML BAG IVPB ONE ×3 (12:27)
[2017-08-22] MEDS ORDERED: fentaNYL* 50 MCG/ML 2 ML VIAL (100 MCG VIAL) ONE ×2 (13:03)
[2017-08-22] MEDS ORDERED: DiMENhydriNATE IV* 50 MG/ML VIAL ONE ×3 (13:03→15:21)
[2017-08-22] MEDS ORDERED: Midazolam* 1 MG/ML 5 ML VIAL (5 MG) ONE ×3 (13:03)
[2017-08-22] MEDS ORDERED: Propofol* 10 MG/ML 20 ML BTL IV PUSH ONE ×2 (13:03)
[2017-08-22] MEDS ORDERED: Bupivacaine 0.25% SDV* 30 ML ONE ×2 (13:23)
[2017-08-22] MEDS ORDERED: methylPREDNISolone ACETATE 80* 80 MG/ML 1 ML VIAL ONE ×2 (14:51)
[2017-08-22] MEDS ORDERED: Bupivacaine 0.5% SDV PF* 30ML VIAL ONE ×2 (14:57)
[2017-08-22] MEDS ORDERED: HYDROmorphone INJ* 1 MG/ML CARPUJECT SYRINGE IV PRN (15:05)
[2017-08-22] MEDS ORDERED: Ondansetron INJ* 2 MG/ML VIAL IV PRN (15:05)
[2017-08-22] MEDS ORDERED: HYDROcodone/ACETAMIN 5-325 MG* 1 TAB PO PRN (15:05)
[2017-08-22] MEDS ORDERED: fentaNYL* 50 MCG/ML 2 ML VIAL (100 MCG VIAL) IV PRN (15:05)
[2017-08-22] MEDS ORDERED: Naloxone* 0.4 MG/ML 1 ML VIAL IV PRN (15:05)
[2017-08-22] MEDS ORDERED: Ondansetron ODT TAB* 4 MG PO PRN (15:05)
[2017-08-22] MEDS ORDERED: oxyCODONE/Acetamin 5/325 MG* TAB PO PRN (15:05)
[2017-08-22] MEDS ORDERED: Ketorolac INJ* 30 MG/ML 1 ML VIAL ONE ×2 (15:21)
[2017-08-22 17:23] VITALS: BP 115/74
--- NOTE | 2017-08-23 19:42 | OP ---
OPERATIVE REPORT: DATE OF OPERATION: 08/22/17 DATE OF : 69 SURGEON: Alejandro Lion MD ELECTRONIC DRAFTER: TRAVIS Mcdonough An pastry assistant was needed for the entirety of the case to help with positioning, retraction, and was utilized throughout all portions of the case. ANESTHESIOLOGIST: Dr. Lange. ANESTHESIA: General interscalene block. PRE-OP DIAGNOSES: Left shoulder calcific tendinitis with impingement and bicipital tendinitis. POST-OP DIAGNOSES: Left shoulder calcific tendinitis with impingement and superior labral tear with bicipital tendinitis. OPERATIVE PROCEDURE: COMPLICATIONS: None. ESTIMATED BLOOD LOSS: Minimal. IMPLANTS USED: One P[employer]hew Q-Fix 2.8 mm anchor. INDICATIONS: Avni Haynes is a 52-year-old male who has had calcific tendinitis and persistent left shoulder impingement along with biceps symptoms. He has failed conservative management and elected to proceed with surgical treatment. Risks and benefits of the surgery were discussed at length included , but not limited to bleeding, infection, damage to nerves, vessels, surrounding structures, wound nonhealing, persistent pain, need for further surgery, scarring, stiffness, incomplete relief of symptoms, and risk of anesthesia. DESCRIPTION OF PROCEDURE: The patient was greeted in the preoperative area by the attending surgeon. The correct extremity was marked and consent was confirmed. The patient then underwent interscalene nerve block by anesthesiologist, after which he was brought back to the operating suite. He was placed in supine position on the operating table. He then underwent general anesthesia with endotracheal intubation, after which he was placed in the right lateral decubitus position with an axillary roll. All bony prominences were padded and secured with peg board and left shoulder was draped unsterile with 10 pounds of traction. Left shoulder was then prepped and draped in the usual sterile fashion beginning with chlorhexidine soap, scrub, and alcohol wipe and a final prep with ChloraPrep. After appropriate surgical pause indicating side, site, procedure, administration of antibiotics, the 11 blade was used to make a posterolateral incision. The scope was introduced into the joint. Joint was examined. There was abundant hyperemia and erythema. There is evidence of type 2 SLAP tear with displacement. The biceps was subluxed. The undersurface of the supraspinatus was intact. Subscapularis had mild fraying. There was some mild glenohumeral wear and tear. The anterior portal was made in an outside-in fashion. The inferior recess was intact. The humeral head had grade 0 to 1 changes. The glenoid had grade 1 to 2 changes with small areas of unstable flaps. Shaver was used to debride the unstable flaps as well as the anterior, posterior, and superior labrum. Biceps was then tenotomized for tenodesis due to the SLAP tear. There was abundant synovitis anteriorly, which was carefully protected as to not cause aggressive bleeding. After the intra-articular portion was done, attention was directed to the subacromial space. The scope was positioned in the subacromial space. The lateral portal was made in an outside-in fashion. There was abundant thick bursa that was present. The shaver was used to debride the bursa back, which is very thick and particularly posteriorly based. The undersurface of the acromion was skeletonized using electrocautery device and then 4-0 oval soha was then used to do an acromioplasty as there was a subtle anterolateral spur. At this point , the cuff was then probed with a probe. It was found to be intact and there was area of calcific lesion, which was then accessed with the 18-gauge spinal needle. Small fenestration holes were then made in the cuff to try to disrupt the calcium. This has been milked out and some small amount was exposed. At this point, the subacromial work was completed and then 18- gauge needle was placed under arthroscopic guidance. The wounds were irrigated and attention was directed to the biceps. The bed was airplaned to the left side. The anterior aspect of the shoulder was prepped again using ChloraPrep. The 15 blade was used to make an incision in line with the biceps tendon. The soft tissues were carefully exposed to expose the pec fascia, which was elevated and exposed back down to the biceps tendon and biceps groove. The biceps was brought through the wound and found to have abundant erythema and synovitis. Groove was then prepared in the usual fashion using electrocautery device, the red ball rasp and osteotome, after which the Q-Fix guide was used to drill unicortically. The Q-Fix was deployed with excellent purchase. Sutures were then passed through the tendon approximately 1 cm proximal to the musculotendinous junction in a Anibal-Josiah type configuration. The excess stump was excised and the biceps was shuttled back into the wound and tied down. The wounds were then copiously irrigated with sterile saline. Anterior wound was closed in layers with 2-0 Vicryl and 3- 0 Monocryl. The portals were closed with 3- 0 nylon. The anterior wound was then injected with 15 cc of 0.5% Marcaine plain. The subacromial space was injected with 80 mg of Depo-Medrol. Sterile dressings were applied. A Cryo/ Cuff and UltraSling were applied. He was awoken from anesthesia and transferred to PACU in stable condition. POSTOPERATIVE PLAN: He will be nonweightbearing. He will be in a sling for 4 weeks. He will be discharged on pain medications and antibiotics. DVT prophylaxis considered, but deferred due to no previous personal or family history. I will see the patient back in 10 to 14 days. [id number]/[facility] #: [id number] ETHAN
== END 2017-08-22 17:50 | disposition home or self-care (01) ==
LOC: OR 11:24
PROVIDERS: ATTEND Orthopaedic Surgery
DX: M75.42 Impingement syndrome of left shoulder (principal); M75.22 Bicipital tendinitis, left shoulder; M75.82 Other shoulder lesions, left shoulder; E11.9 Type 2 diabetes mellitus without complications; Z79.84 Long term (current) use of oral hypoglycemic drugs; G89.18 Other acute postprocedural pain; F17.210 Nicotine dependence, cigarettes, uncomplicated; I10 Essential (primary) hypertension; E66.01 Morbid (severe) obesity due to excess calories; E78.2 Mixed hyperlipidemia; Z68.36 Body mass index [BMI] 36.0-36.9, adult; F41.0 Panic disorder [episodic paroxysmal anxiety]; M54.16 Radiculopathy, lumbar region; M50.90 Cervical disc disorder, unspecified, unspecified cervical region
CPT/HCPCS: C1776; J0690; J1040; J1240; J1885; J2250; J2704; J3010

== ENCOUNTER → 2018-03-26 06:30 | Day surgery (SDC) | payer MEDICAID ==
--- NOTE | 2018-03-24 20:06 | HP ---
PREOPERATIVE HISTORY AND PHYSICAL: DATE OF ADMISSION/SURGERY: 03/26/18 DATE OF OFFICE VISIT: 03/21/18 ATTENDING SURGEON: Dr. Alejandro Lion.* (DICTATED BY TRAVIS ESQUIVEL) PROCEDURE: Left shoulder revision arthroscopic decompression, debridement, and possible rotator cuff repair. CHIEF COMPLAINT: Left shoulder. HISTORY OF PRESENT ILLNESS: Avni is a 53-year-old male who presents to the clinic for left shoulder pain due to a rotator cuff tear. He has had a prior rotator cuff repair. He has failed conservative measures and therefore agreed to undergo left shoulder revision arthroscopic decompression, debridement, and possible rotator cuff repair with Dr. Lion on 03/26/18. PAST MEDICAL HISTORY: 1. Hyperlipidemia. 2. Diabetes. 3. Osteoarthritis. 4. Diverticulitis. 5. History of alcohol abuse, sober since 2015. 6. Cervical spine disease. PAST SURGICAL HISTORY: 1. Left shoulder arthroscopy with decompression, debridement, and biceps tenotomy. 2. Neck surgery in 2017. 3. Abdominal surgery x3 with an ileostomy and reversal. 4. Neck surgery in 2005. 5. [place] teeth surgery. 6. Tonsillectomy and adenoidectomy. 7. Appendectomy in 2003. 8. Kidney stents. 9. Right second finger I and D. 10. Recently had 2 teeth pulled. The patient denies prior complications from anesthesia. FAMILY HISTORY: He denies pertinent family history. SOCIAL HISTORY: He lives alone. He does not work. He smokes 5 cigarettes a week. He denies alcohol consumption. He has been sober since 2016. He is right -hand dominant. REVIEW OF SYSTEMS: A 14-point review of systems was reviewed with the patient. Positive for current complaint, otherwise negative. Denies fevers, chills, chest pain, shortness of breath, history of DVT or PE, history of bleeding disorder. PHYSICAL EXAMINATION GENERAL: A 53-year-old well-developed, well-nourished male, in no acute distress. Alert and oriented x3. VITAL SIGNS: Height 70, weight 253, blood pressure 120/66, respiratory rate 18 , BMI 36.3. HEENT: Normocephalic, atraumatic. PERRLA. Throat: Clear. NECK: Supple. PULMONARY: Lungs are clear to auscultation bilaterally. No wheezing, rhonchi, or rales. CARDIO: Regular rate and rhythm. S1, S2. No murmurs, gallops, or rubs. No edema. ABDOMEN: Positive bowel sounds, soft, nontender. NEURO: Alert and oriented x3. Cranial nerves grossly intact. Sensation is intact to light touch. MUSCULOSKELETAL: Left upper extremity, skin is intact. No warmth or erythema. Well-healed incision. Nontender about the AC joint. Forward flexion and abduction 145, external rotation to 40, internal rotation to posterior iliac spine. Pain with rotator cuff testing. Positive impingement, Speed, Kovacs- Narinder, [place]. +2 radial pulse. Sensation intact to light touch distally. DIAGNOSTIC STUDIES: MRI revealed no evidence of full-thickness tear of the rotator cuff; however, he does have recurrence of bursitis. IMPRESSION: Left shoulder impingement, possible rotator cuff tear. PLAN: The patient is scheduled to undergo a left shoulder revision arthroscopic decompression, debridement, and possible rotator cuff repair with Dr. Lion on 03/26/18. Oxycodone will be used for postop pain management in addition to his chronic pain meds and Keflex will be used for antibiotic prophylaxis since the patient has had prior surgeries. He will follow up in 10 to 14 days postop for followup and suture removal. TRAVIS ESQUIVEL [id number]/[facility] #: [id number] MTDD
[~2018-03-26 06:30] MED LIST changes: +Atracurium* 10 MG/ML 10 ML VIAL ONE; +Dexamethasone IV* 4 MG/ML 1 ML (4 MG) IV SLOW PU ONE; +Dexamethasone IV* 4 MG/ML 1 ML (4 MG) ONE; +DiMENhydriNATE IV* 50 MG/ML VIAL IV PUSH PRN; +EPHEDrine (Pressors)* 50 MG/ML VIAL ONE; +Famotidine IV* 10 MG/ML 2 ML (20 mg) ONE; +Famotidine TAB* 20 MG ONE; +Famotidine TAB* 20 MG PO ONE; +HYDROmorphone INJ1* 1 MG/ML SYRINGE IV PRN; +Insulin REGULAR(*) 1 UNITS UNIT IV PUSH ONE; +Insulin REGULAR(*) 1 UNITS UNIT ONE; +Lactated Ringers 1000 ML Bag* 1,000 ML IV SCH; +Lidocaine 2% PF * 5 ML VIAL ONE; +Midazolam* 1 MG/ML 10 ML VIAL (10 MG) ONE; +Naloxone* 0.4 MG/ML 1 ML VIAL IV PRN; +Ondansetron INJ* 2 MG/ML VIAL IV PRN; +Phenylephrine INJ* 10 MG/ML 1 ML VIAL (10 MG) ONE; +Propofol* 10 MG/ML 20 ML BTL ONE; +ROPIVACAINE 5 MG/ML 30 ML BTL (0.5%) ONE; +Ropivacaine* 2 MG/ML 20 ML VIAL (0.2%) ONE; +ceFAZolin 2 GM PREMIX in ORs 2 GM/50 ML BAG IVPB ONE; +fentaNYL* 50 MCG/ML 2 ML VIAL (100 MCG VIAL) IV PRN; +fentaNYL* 50 MCG/ML 2 ML VIAL (100 MCG VIAL) ONE; +fentaNYL* 50 MCG/ML 5 ML VIAL (250 MCG VIAL) ONE; +oxyCODONE/Acetamin 5/325 MG* TAB ONE
[2018-03-26] MEDS: oxyCODONE/Acetamin 5/325 MG* TAB PO PRN ×2 (11:01→11:02)
[2018-03-26 12:11] VITALS: BP 124/76
--- NOTE | 2018-03-26 20:27 | OP ---
OPERATIVE REPORT: DATE OF OPERATION: 03/26/18 DATE OF : 69 SURGEON: Alejandro Lion MD FLY RAIL OPERATOR: TRAVIS Mcdonough An optical assistant was needed for entirety of the case to help with positioning, retraction, and was utilized throughout all portions of case. ANESTHESIOLOGIST: Dr. Medellin. ANESTHESIA: General interscalene block. PRE-OP DIAGNOSIS: Left shoulder high-grade partial-thickness tear of the rotator cuff, persistent pain. POST-OP DIAGNOSIS: Left shoulder high-grade partial-thickness tear of the rotator cuff, persistent pain. OPERATIVE PROCEDURE: Revision left shoulder arthroscopy with: 1. Lysis of adhesions and glenohumeral debridement. 2. Revision of subacromial decompression with acromioplasty. 3. Rotator cuff repair using Regeneten patch. COMPLICATIONS: None. ESTIMATED BLOOD LOSS: Minimal. IMPLANTS USED: One Perales and Nephew Regeneten patch. INDICATIONS: Avni Haynes is a 53-year-old male who underwent previous arthroscopy with decompression, debridement, and biceps tenodesis. He did okay for a while, but he continued to have pain and discomfort. He also had some component of adhesive capsulitis. The risks and benefits of surgery were discussed at length which included, but are not limited to, bleeding; infection ; damage to nerve, vessels, surrounding structures; wound nonhealing; persistent pain; need for surgery; scaring; stiffness; incomplete relief of symptoms; risks of anesthesia. DESCRIPTION OF PROCEDURE: The patient was greeted in the preoperative area by the attending surgeon. The correct extremity was marked and the consent was confirmed. The patient underwent interscalene nerve block by anesthesiologist, after which he was brought back to the operating suite, where he was placed in supine position on the operating table. He then underwent general anesthesia with endotracheal intubation, after which he was positioned in the right lateral decubitus position with an axillary roll. All bony prominences were padded. He was secured with a pegboard. The left arm was draped unsterile with 10 pounds of traction. The left shoulder was prepped and draped in the usual sterile fashion beginning with chlorhexidine soap, scrub, and alcohol wipe and a final prep with ChloraPrep. After appropriate surgical pause indicating site, side, procedure, and administration of antibiotics, the standard posterolateral portal was made sharply with an 11 blade. The scope was introduced into the joint. There was significant scar tissue in the joint. The anterior portal was made in an outside-in fashion. Shaver was used to debride the undersurface of the rotator cuff, which had partially this tearing, as well as the anterior and posterior labrum. The electrocautery device was used to release lot of the adhered scar tissue with care to protect the subscap. The interval tissue was released as well as the tissue anteriorly extending all the way to 6 o'clock position. Once this was completed, attention was directed to the subacromial space. The scope was positioned in the subacromial space. The lateral portal was made in an outside-in fashion. Shaver was used to debride back the recurrent bursa. There was thick tissue. The electrocautery device was used to skeletonize the acromion again and remove any of the thick adhesive issue. A small acromioplasty was done for the small remaining slight spur that was left. The cuff was then carefully probed and found to be intact. Decision was made to do a Regeneten patch. The Regeneten was brought to the field and placed under arthroscopic visualization. Through a separate incision, a cannula was placed for facilitation of tendon panda. At this point, the patch was then secured medially with the tendon panda. Once this was done, it was secured laterally with bone panda. Final images were obtained. The shoulder was taken through gentle range of motion. The wounds were copiously irrigated with sterile saline. The portals were closed with nylon. Sterile dressings were applied. He was awoken from anesthesia and transferred to the PACU in stable condition. POSTOPERATIVE PLAN: He will be in a sling for few days. He will be discharged on pain medication. He will start therapy next week. DVT prophylaxis was considered but deferred due to no previous personal or family history. [id number]/[facility] #: [id number] ETHAN
== END | disposition home or self-care (01) ==
LOC: OR 06:30
PROVIDERS: ATTEND Orthopaedic Surgery
DX: M75.112 Incomplete rotator cuff tear or rupture of left shoulder, not specified as traumatic (principal); E11.9 Type 2 diabetes mellitus without complications; F17.210 Nicotine dependence, cigarettes, uncomplicated; E78.5 Hyperlipidemia, unspecified; F10.11 Alcohol abuse, in remission; M19.90 Unspecified osteoarthritis, unspecified site; Z79.891 Long term (current) use of opiate analgesic; G89.18 Other acute postprocedural pain
CPT/HCPCS: A9270-GY; C1713; J0690; J1100; J2250; J2704; J2795; J3010

== ENCOUNTER 2018-09-20 02:22 | Emergency (ER) | payer MEDICAID ==
--- OUTSIDE RECORDS SUMMARY | 2018-09-20 02:53 | XMS REPORT | Continuity of Care Document ---
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 150-450 Mean Platelet Volume 8.5 um3 N 7.4-10.4 Abs Neutrophils 3.8 10^3/uL N 1.5-7.7 Abs Lymphocytes 3.4 10^3/uL N 1.0-4.8 Abs Monocytes 0.5 10^3/uL N 0-0.8 Abs Eosinophils 0.1 10^3/uL N 0-0.6 Abs Basophils 0 10^3/uL N 0-0.2 Abs Nucleated RBC 0 10^3/uL Granulocyte % 48.3 % N 38-83 Lymphocyte % 43.5 % N 25-47 Monocyte % 6.4 % N 0-7 Eosinophil % 1.2 % N 0-6 Basophil % 0.6 % N 0-2 Nucleated Red Blood Cells % 0.1 Basic Metabolic 08/16/2017 [facility] Sodium 136 mmol/L Low 139-[address] [place] [address] [phone] Potassium 4.2 mmol/L N 3.5-5.0 Chloride 100 mmol/L Low 101-111 Co2 Carbon Dioxide 25 mmol/L N 22-32 Anion Gap 11 mmol/L N 2-11 Glucose 223 mg/dL High 70-100 Blood Urea Nitrogen 14 mg/dL N 6-24 Creatinine 0.70 mg/dL N 0.67-1.17 BUN/Creatinine Ratio 20.0 N 8-20 Calcium 9.9 mg/dL N 8.6-10.3 Egfr Non- 119.4 >60 Egfr 153.5 >60 63 Laboratory test 08/16/2017 [facility] Hemoglobin A1c 8.2 % High 4.0-5.6 [address] (Glyco HGB) [place] [address] [phone] Urine 08/16/2017 [facility] Ur Microalbumin 93.[address] (mg/L) mg/[place] [address] [phone] Urine Creatinine 114.22 mg/dL Urine Microalbumin/Creatinine 82.1 ug/mg High <31 Lipid Profile 07/08/2017 [facility] Triglycerides 393 mg/dL 65 (Trig/Chol/HDL) [address] [place] [address] [phone] Cholesterol 198 mg/dL 66 HDL Cholesterol 37.2 mg/dL 67 LDL Cholesterol 82 mg/dL 68 Wound 04/16/2017 [facility] Wound/Misc SEE RESULT 69 Culture/Sensi [address] [place] [address] Stain [phone] Laboratory test 04/16/2017 [facility] Anaerobic Culture SEE RESULT [address] [place] [address] [phone] Laboratory test 04/16/2017 [facility] Point of Care 231 mg/dL High 70-1 [address] Glucose 00 [place], [place] [address] [phone] Wound 04/14/2017 [facility] Wound/Misc SEE RESULT 72 Culture/Sens[facility] [address] [place] [address] Stain [phone] Laboratory test 02/05/2017 [facility] [employer] [facility] Hemoglobin A1c 7.6 High 5-7 finding Lipid Profile 01/08/2017 [facility] Triglycerides 561 mg/dL N 73 (Trig/Chol/HDL) [address] [place], [place] [id number] [phone] Cholesterol 182 mg/dL N 74 HDL Cholesterol 34.4 mg/dL N 75 LDL Cholesterol (SEE NOTE) mg/dL N 76 Laboratory 01/08/2017 [facility] Hepatitis C Nonreactive N Nonreactive 77 test finding [address] Antibody [place], [place] [id number] [phone] LDL Cholesterol Direct 80 mg/dL N 78 Laboratory test 11/05/2016 [facility] [employer] [facility] Hemoglobin A1c 7.0 5-7 finding Urine Microalbumin 08/03/2016 [facility] Urine Creatinine 192.48 mg/dL N Random [address] [place] [address] [phone] Ur Microalbumin (mg/L) 64.5 mg/L N Urine Microalbumin/Creatinine 33.5 ug/mg High <31 Laboratory test 08/03/2016 [employer] [facility] Hemoglobin A1c 7.9 High 5-7 finding Basic Metabolic 06/21/2016 [facility] Sodium 137 mmol/L N 133- 145 [address] [place], [place] [id number] [phone] Potassium 4.2 mmol/L N 3.5-5.0 Chloride 100 mmol/L Low 101-111 Co2 Carbon Dioxide 29 mmol/L N 22-32 Anion Gap 8 mmol/L N 2-11 Glucose 193 mg/dL High 70-100 Blood Urea Nitrogen 14 mg/dL N 6-24 Creatinine 0.71 mg/dL N 0.67-1.17 BUN/Creatinine Ratio 19.7 N 8-20 Calcium 9.8 mg/dL N 8.6-10.3 Egfr Non- 117.9 N >60 Egfr 151.6 N >60 80 CBC No Diff 06/21/2016 [facility] White Blood 7.6 10^3/uL N 3.5-10.[address] [place] [address] [phone] Red Blood Count 4.60 10^6/uL N 4.0-5.4 Hemoglobin 13.9 g/dL Low 14.0-18.0 Hematocrit 40 % Low 42-52 Mean Corpuscular Volume 87 fL N 80-94 Mean Corpuscular Hemoglobin 30 pg N 27-31 Mean Corpuscular HGB Conc 35 g/dL N 31-36 Red Cell Distribution Width 14 % N 10.5-15 Platelet Count 218 10^3/uL N 150-450 Mean Platelet Volume 9 um3 N 7.4-10.4 Laboratory test 04/12/2016 [facility] [employer] [facility] Hemoglobin A1c 9.2 High 5-7 finding Lipid Profile 04/10/2016 [facility] Triglycerides 487 mg/dL N 81 (Trig/Chol/HDL) [address] [place] [address] [phone] Cholesterol 189 mg/dL N 82 HDL Cholesterol 35.8 mg/dL N 83 LDL Cholesterol (SEE NOTE) mg/dL N 84 Lipid Profile 02/29/2016 [facility] Triglycerides 356 mg/dL N 85 (Trig/Chol/HDL) [address] [place] [address] [phone] Cholesterol 171 mg/dL N 86 HDL Cholesterol 36.9 mg/dL N 87 LDL Cholesterol 63 mg/dL N 88 Comp Metabolic Panel 02/29/2016 [facility] Sodium 133 mmol/L N 133-[address] [place] [address] [phone] Potassium 4.4 mmol/L N 3.5-5.0 Chloride 99 mmol/L Low 101-111 Co2 Carbon Dioxide 25 mmol/L N 22-32 Anion Gap 9 mmol/L N 2-11 Glucose 229 mg/dL High 70-100 Blood Urea Nitrogen 15 mg/dL N 6-24 Creatinine 0.71 mg/dL N 0.67-1.17 BUN/Creatinine Ratio 21.1 High 8-20 Calcium 9.6 mg/dL N 8.6-10.3 Total Protein 7.6 g/dL N 6.4-8.9 Albumin 4.4 g/dL N 3.2-5.2 Globulin 3.2 g/dL N 2-4 Albumin/Globulin Ratio 1.4 N 1-3 Total Bilirubin 0.50 mg/dL N 0.2-1.0 Alkaline Phosphatase 80 U/L N 34-104 Alt 17 U/L N 7-52 Ast 14 U/L N 13-39 Egfr Non- 117.9 N >60 Egfr 151.6 N >60 89 Laboratory test 01/19/2016 [facility] [employer] [facility] Hemoglobin A1c 6.7 5-7 finding Laboratory test 12/01/2015 [facility] Point of Care 122 mg/dL High 74-106 [address] [place] [address] [phone] CBC Auto Diff 11/30/2015 [facility] White Blood Count 9.1 N 3.5-10.[address] 10^3/[place] [address] [phone] Red Blood Count 4.14 10^6/uL N 4.0-5.4 Hemoglobin 13.3 g/dL Low 14.0-18.0 Hematocrit 39 % Low 42-52 Mean Corpuscular Volume 93 fL N 80-94 Mean Corpuscular Hemoglobin 32 pg High 27-31 Mean Corpuscular HGB Conc 34 g/dL N 31-36 Red Cell Distribution Width 15 % N 10.5-15 Platelet Count 186 10^3/uL N 150-450 Mean Platelet Volume 9 um3 N 7.4-10.4 Abs Neutrophils 6.0 10^3/uL N 1.5-7.7 Abs Lymphocytes 2.2 10^3/uL N 1.0-4.8 Abs Monocytes 0.8 10^3/uL N 0-0.8 Abs Eosinophils 0.1 10^3/uL N 0-0.6 Abs Basophils 0.1 10^3/uL N 0-0.2 Abs Nucleated RBC 0.07 10^3/uL N Granulocyte % 65.2 % N 38-83 Lymphocyte % 24.1 % Low 25-47 Monocyte % 8.7 % N 1-9 Eosinophil % 1.3 % N 0-6 Basophil % 0.7 % N 0-2 Nucleated Red Blood Cells % 0.7 N Urinalysis Profile 11/30/2015 [facility] Urine Color Yellow N [address] [place] [address] [phone] Urine Appearance Turbid N Urine Specific [place] 1.031 High 1.010-1.030 Urine pH 5.0 N 5-9 Urine Urobilinogen Negative N Negative Urine Ketones Negative N Negative Urine Protein 1+(30 mg/dL) Abnormal Negative Urine Leukocytes Negative N Negative Urine Blood 2+ Abnormal Negative Urine Nitrite Negative N Negative Urine Bilirubin Negative N Negative Urine Glucose 3+(>=500 mg/dL) Abnormal Negative Urine White Blood Cell Absent N Absent Urine Red Blood Cell 3+(>10/hpf) Abnormal Absent Urine Bacteria 1+ Abnormal Absent Comp Metabolic Panel 11/30/2015 [facility] Sodium 137 mmol/L N 133-145 [address] [place] [address] [phone] Potassium 4.0 mmol/L N 3.5-5.0 Chloride 104 mmol/L N 101-111 Co2 Carbon Dioxide 25 mmol/L N 22-32 Anion Gap 8 mmol/L N 2-11 Glucose 128 mg/dL High 70-100 Blood Urea Nitrogen 21 mg/dL N 6-24 Creatinine 1.06 mg/dL N 0.67-1.17 BUN/Creatinine Ratio 19.8 N 8-20 Calcium 9.4 mg/dL N 8.6-10.3 Total Protein 7.4 g/dL N 6.4-8.9 Albumin 4.5 g/dL N 3.2-5.2 Globulin 2.9 g/dL N 2-4 Albumin/Globulin Ratio 1.6 N 1-3 Total Bilirubin 0.50 mg/dL N 0.2-1.0 Alkaline Phosphatase 52 U/L N 34-104 Alt 23 U/L N 7-52 Ast 15 U/L N 13-39 Egfr Non- 74.6 N >60 Egfr 95.9 N >60 91 Laboratory test finding 11/30/2015 [facility] Lipase 35 U/L N 11.0-82.[address] [place] [address] [phone] C Reactive Protein 7.26 mg/L High < 5.00 92 Lactic Acid 1.5 mmol/L N 0.5-2.0 93 Urine Culture And 11/30/2015 [facility] Urine Culture SEE RESULT [address] [place] [address] [phone] Laboratory test 11/30/2015 [facility] Blood Culture SEE RESULT [address] [place] [address] [phone] Urinalysis Profile 11/30/2015 [facility] Urine Color Yellow N [address] [place] [address] [phone] Urine Appearance Cloudy N Urine Specific [place] 1.027 N 1.010-1.030 Urine pH 5.0 N 5-9 Urine Urobilinogen Negative N Negative Urine Ketones Trace Abnormal Negative Urine Protein 1+(30 mg/dL) Abnormal Negative Urine Leukocytes Negative N Negative Urine Blood 3+ Abnormal Negative Urine Nitrite Negative N Negative Urine Bilirubin Negative N Negative Urine Glucose 3+(>=500 mg/dL) Abnormal Negative Urine White Blood Cell Trace(0-5/hpf) N Absent Urine Red Blood Cell 3+(>10/hpf) Abnormal Absent Urine Bacteria Absent N Absent Comp Metabolic Panel 11/30/2015 [facility] Sodium 139 mmol/L N 133-[address] [place] [address] [phone] Potassium 3.6 mmol/L N 3.5-5.0 Chloride 102 mmol/L N 101-111 Co2 Carbon Dioxide 28 mmol/L N 22-32 Anion Gap 9 mmol/L N 2-11 Glucose 269 mg/dL High 70-100 Blood Urea Nitrogen 17 mg/dL N 6-24 Creatinine 0.79 mg/dL N 0.67-1.17 BUN/Creatinine Ratio 21.5 High 8-20 Calcium 9.8 mg/dL N 8.6-10.3 Total Protein 7.5 g/dL N 6.4-8.9 Albumin 4.6 g/dL N 3.2-5.2 Globulin 2.9 g/dL N 2-4 Albumin/Globulin Ratio 1.6 N 1-3 Total Bilirubin 0.50 mg/dL N 0.2-1.0 Alkaline Phosphatase 61 U/L N 34-104 Alt 24 U/L N 7-52 Ast 14 U/L N 13-39 Egfr Non- 104.7 N >60 Egfr 134.6 N >60 96 Laboratory test 11/30/2015 [facility] Magnesium 1.8 mg/dL Low 1.9-2.[address] [place] [address] [phone] Lipase 64 U/L N 11.0-82.0 C Reactive Protein 5.54 mg/L High < 5.00 97 CBC Auto Diff 11/30/2015 [facility] White Blood 8.2 10^3/uL N 3.5-10.[address] [place] [address] [phone] Red Blood Count 4.33 10^6/uL N 4.0-5.4 Hemoglobin 14.3 g/dL N 14.0-18.0 Hematocrit 40 % Low 42-52 Mean Corpuscular Volume 93 fL N 80-94 Mean Corpuscular Hemoglobin 33 pg High 27-31 Mean Corpuscular HGB Conc 35 g/dL N 31-36 Red Cell Distribution Width 14 % N 10.5-15 Platelet Count 219 10^3/uL N 150-450 Mean Platelet Volume 9 um3 N 7.4-10.4 Abs Neutrophils 4.6 10^3/uL N 1.5-7.7 Abs Lymphocytes 2.8 10^3/uL N 1.0-4.8 Abs Monocytes 0.6 10^3/uL N 0-0.8 Abs Eosinophils 0.1 10^3/uL N 0-0.6 Abs Basophils 0.1 10^3/uL N 0-0.2 Abs Nucleated RBC 0.03 10^3/uL N Granulocyte % 56.2 % N 38-83 Lymphocyte % 34.0 % N 25-47 Monocyte % 7.4 % N 1-9 Eosinophil % 1.5 % N 0-6 Basophil % 0.9 % N 0-2 Nucleated Red Blood Cells % 0.3 N Laboratory test 10/12/2015 [employer] [facility] Hemoglobin A1c 5.7 5-7 finding Comp Metabolic Panel 10/07/2015 [facility] Sodium 139 mmol/L N 133-145 [address] [place] [address] [phone] Potassium 4.0 mmol/L N 3.5-5.0 Chloride 104 mmol/L N 101-111 Co2 Carbon Dioxide 27 mmol/L N 22-32 Anion Gap 8 mmol/L N 2-11 Glucose 140 mg/dL High 70-100 Blood Urea Nitrogen 17 mg/dL N 6-24 Creatinine 0.80 mg/dL N 0.67-1.17 BUN/Creatinine Ratio 21.3 High 8-20 Calcium 9.5 mg/dL N 8.6-10.3 Total Protein 7.2 g/dL N 6.4-8.9 Albumin 4.5 g/dL N 3.2-5.2 Globulin 2.7 g/dL N 2-4 Albumin/Globulin Ratio 1.7 N 1-3 Total Bilirubin 0.70 mg/dL N 0.2-1.0 Alkaline Phosphatase 54 U/L N 34-104 Alt 32 U/L N 7-52 Ast 29 U/L N 13-39 Egfr Non- 103.2 N >60 Egfr 132.7 N >60 98 Lipid Profile 10/07/2015 [facility] Triglycerides 309 mg/dL N 99 (Trig/Chol/HDL) [address] [place] [address] [phone] Cholesterol 181 mg/dL N 100 HDL Cholesterol 48.1 mg/dL N 101 LDL Cholesterol 71 mg/dL N 102 Lipid Profile 08/12/2015 [facility] Triglycerides 467 mg/dL N 103 (Trig/Chol/HDL) [address] [place] [address] [phone] Cholesterol 216 mg/dL N 104 HDL Cholesterol 43.7 mg/dL N 105 LDL Cholesterol (SEE NOTE) mg/dL N 106 Comp Metabolic Panel 08/12/2015 [facility] Sodium 137 mmol/L N 133-145 [address] [place] [address] [phone] Potassium 4.4 mmol/L N 3.5-5.0 Chloride 102 mmol/L N 101-111 Co2 Carbon Dioxide 26 mmol/L N 22-32 Anion Gap 9 mmol/L N 2-11 Glucose 157 mg/dL High 70-100 Blood Urea Nitrogen 14 mg/dL N 6-24 Creatinine 0.72 mg/dL N 0.67-1.17 BUN/Creatinine Ratio 19.4 N 8-20 Calcium 9.8 mg/dL N 8.6-10.3 Total Protein 7.8 g/dL N 6.4-8.9 Albumin 4.8 g/dL N 3.2-5.2 Globulin 3.0 g/dL N 2-4 Albumin/Globulin Ratio 1.6 N 1-3 Total Bilirubin 0.40 mg/dL N 0.2-1.0 Alkaline Phosphatase 63 U/L N 34-104 Alt 60 U/L High 7-52 Ast 30 U/L N 13-39 Egfr Non- 116.5 N >60 Egfr 149.8 N >60 107 Laboratory test 08/12/2015 [facility] PSA Screening 0.400 N 0- 4.000 [address] ng/[place] [address] [phone] Lipid Profile 07/15/2015 [facility] Triglycerides 434 mg/dL N 109 (Trig/Chol/HDL) [address] [place] [address] [phone] Cholesterol 247 mg/dL N 110 HDL Cholesterol 46.5 mg/dL N 111 Comp Metabolic Panel 07/15/2015 [facility] Sodium 134 mmol/L N 133-145 [address] [place] [address] [phone] Potassium 4.3 mmol/L N 3.5-5.0 Chloride 98 mmol/L Low 101-111 Co2 Carbon Dioxide 25 mmol/L N 22-32 Anion Gap 11 mmol/L N 2-11 Glucose 281 mg/dL High 70-100 Blood Urea Nitrogen 20 mg/dL N 6-24 Creatinine 0.78 mg/dL N 0.67-1.17 BUN/Creatinine Ratio 25.6 High 8-20 Calcium 9.7 mg/dL N 8.6-10.3 Total Protein 7.6 g/dL N 6.4-8.9 Albumin 4.8 g/dL N 3.2-5.2 Globulin 2.8 g/dL N 2-4 Albumin/Globulin Ratio 1.7 N 1-3 Total Bilirubin 0.50 mg/dL N 0.2-1.0 Alkaline Phosphatase 67 U/L N 34-104 Alt 22 U/L N 7-52 Ast 14 U/L N 13-39 Egfr Non- 106.2 N >60 Egfr 136.6 N >60 112 Laboratory test 06/29/2015 [facility] Hemoglobin A1c 8.5 % High Less [address] (Glyco HGB) than 6.0 [place] [address] [phone] Lipid Profile 06/29/2015 [facility] Cholesterol 279 N 114 (Trig/Chol/HDL) [address] mg/[place] [address] [phone] HDL Cholesterol 38.4 mg/dL N 115 Triglycerides 1544 mg/dL N 116 Urine Microalbumin 06/29/2015 [facility] Ur Microalbumin 26.0 mg /L N Random [address] (mg/L) [place] [address] [phone] Urine Creatinine 180.57 mg/dL N Urine Microalbumin/Creatinine 14.3 ug/mg N <31 CBC Auto Diff 06/14/2015 [facility] White Blood 8.4 10^3/uL N 3.5-10.[address] [place] [address] [phone] Red Blood Count 5.07 10^6/uL N 4.0-5.4 Hemoglobin 16.2 g/dL N 14.0-18.0 Hematocrit 47 % N 42-52 Mean Corpuscular Volume 93 fL N 80-94 Mean Corpuscular Hemoglobin 32 pg High 27-31 Mean Corpuscular HGB Conc 35 g/dL N 31-36 Red Cell Distribution Width 14 % N 10.5-15 Platelet Count 212 10^3/uL N 150-450 Mean Platelet Volume 9 um3 N 7.4-10.4 Abs Neutrophils 4.5 10^3/uL N 1.5-7.7 Abs Lymphocytes 3.2 10^3/uL N 1.0-4.8 Abs Monocytes 0.5 10^3/uL N 0-0.8 Abs Eosinophils 0.1 10^3/uL N 0-0.6 Abs Basophils 0.1 10^3/uL N 0-0.2 Abs Nucleated RBC 0.03 10^3/uL N Granulocyte % 53.2 % N 38-83 Lymphocyte % 38.5 % N 25-47 Monocyte % 6.3 % N 1-9 Eosinophil % 1.3 % N 0-6 Basophil % 0.7 % N 0-2 Nucleated Red Blood Cells % 0.3 N Urinalysis Profile 06/14/2015 [facility] Urine Color Yellow N [address] [place] [address] [phone] Urine Appearance Clear N Urine Specific [place] 1.036 High 1.010-1.030 Urine pH 5.0 N 5-9 Urine Urobilinogen Negative N Negative Urine Ketones Trace Abnormal Negative Urine Protein Negative N Negative Urine Leukocytes Negative N Negative Urine Blood Negative N Negative Urine Nitrite Negative N Negative Urine Bilirubin Negative N Negative Urine Glucose 3+(>=500 mg/dL) Abnormal Negative Comp Metabolic Panel 06/14/2015 [facility] Sodium 133 mmol/L N 133-[address] [place] [address] [phone] Chloride 100 mmol/L Low 101-111 Co2 Carbon Dioxide 24 mmol/L N 22-32 Glucose 315 mg/dL High 70-100 Blood Urea Nitrogen 13 mg/dL N 6-24 Creatinine 0.83 mg/dL N 0.67-1.17 BUN/Creatinine Ratio 15.7 N 8-20 Calcium 9.2 mg/dL N 8.6-10.3 117 Total Protein 7.4 g/dL N 6.4-8.9 Albumin 4.4 g/dL N 3.2-5.2 Globulin 3.0 g/dL N 2-4 Albumin/Globulin Ratio 1.5 N 1-3 Total Bilirubin 0.70 mg/dL N 0.2-1.0 Alkaline Phosphatase 76 U/L N 34-104 Alt 35 U/L N 7-52 Egfr Non- 98.9 N >60 Egfr 127.2 N >60 118 Potassium 4.4 mmol/L N 3.5-5.0 Anion Gap 9 mmol/L N 2-11 Ast 17 U/L N 13-39 CBC Auto 01/06/2015 [facility] White Blood 7.7 10^3/uL N 4.8- 10.8 [address] [place] [address] [phone] Red Blood Count 4.07 10^6/uL N 4.0-5.4 Hemoglobin 13.3 g/dL Low 14.0-18.0 Hematocrit 38 % Low 42-52 Mean Corpuscular Volume 94 fL N 80-94 Mean Corpuscular Hemoglobin 33 pg High 27-31 Mean Corpuscular HGB Conc 35 g/dL N 31-36 Red Cell Distribution Width 16 % High 10.5-15 Platelet Count 168 10^3/uL N 150-450 Mean Platelet Volume 8 um3 N 7.4-10.4 Abs Neutrophils 4.2 10^3/uL N 1.5-7.7 Abs Lymphocytes 3.1 10^3/uL N 1.0-4.8 Abs Monocytes 0.3 10^3/uL N 0-0.8 Abs Eosinophils 0.1 10^3/uL N 0-0.6 Abs Basophils 0.1 10^3/uL N 0-0.2 Abs Nucleated RBC 0.02 10^3/uL N Granulocyte % 54.2 % N 38-83 Lymphocyte % 39.9 % N 25-47 Monocyte % 4.4 % N 1-9 Eosinophil % 0.8 % N 0-6 Basophil % 0.7 % N 0-2 Nucleated Red Blood Cells % 0.2 N Comp Metabolic Panel 01/06/2015 [facility] Sodium 138 mmol/L N 133-[address] [place] [address] [phone] Potassium 3.8 mmol/L N 3.5-5.0 Chloride 102 mmol/L N 101-111 Co2 Carbon Dioxide 29 mmol/L N 22-32 Anion Gap 7 mmol/L N 2-11 Glucose 142 mg/dL High 70-100 Blood Urea Nitrogen 11 mg/dL N 6-24 Creatinine 0.66 mg/dL Low 0.67-1.17 BUN/Creatinine Ratio 16.7 N 8-20 Calcium 9.0 mg/dL N 8.6-10.3 Total Protein 6.5 g/dL N 6.4-8.9 Albumin 4.0 g/dL N 3.2-5.2 Globulin 2.5 g/dL N 2-4 Albumin/Globulin Ratio 1.6 N 1-3 Total Bilirubin 0.50 mg/dL N 0.2-1.0 Alkaline Phosphatase 59 U/L N 34-104 Alt 38 U/L N 7-52 Ast 20 U/L N 13-39 Egfr Non- 129.4 N >60 Egfr 166.4 N >60 120 Comp Metabolic Panel 10/20/2014 [facility] Sodium 138 mmol/L N 133-[address] [place] [address] [phone] Potassium 4.0 mmol/L N 3.5-5.0 Chloride 101 mmol/L N 101-111 Co2 Carbon Dioxide 30 mmol/L N 22-32 Anion Gap 7 mmol/L N 2-11 Glucose 141 mg/dL High 70-100 Blood Urea Nitrogen 11 mg/dL N 6-24 Creatinine 0.65 mg/dL Low 0.67-1.17 BUN/Creatinine Ratio 16.9 N 8-20 Calcium 9.4 mg/dL N 8.6-10.3 Total Protein 7.0 g/dL N 6.4-8.9 Albumin 4.2 g/dL N 3.2-5.2 Globulin 2.8 g/dL N 2-4 Albumin/Globulin Ratio 1.5 N 1-3 Total Bilirubin 0.70 mg/dL N 0.2-1.0 Alkaline Phosphatase 69 U/L N 34-104 Alt 20 U/L N 7-52 Ast 14 U/L N 13-39 Egfr Non- 131.7 N >60 Egfr 169.3 N >60 122 CBC Auto Diff 10/20/2014 [facility] White Blood 9.2 10^3/uL N 4.8-10.[address] [place] [address] [phone] Red Blood Count 4.48 10^6/uL N 4.0-5.4 Hemoglobin 14.1 g/dL N 14.0-18.0 Hematocrit 41 % Low 42-52 Mean Corpuscular Volume 92 fL N 80-94 Mean Corpuscular Hemoglobin 31 pg N 27-31 Mean Corpuscular HGB Conc 34 g/dL N 31-36 Red Cell Distribution Width 15 % N 10.5-15 Abs Neutrophils 4.7 10^3/uL N 1.5-7.7 Abs Lymphocytes 3.9 10^3/uL N 1.0-4.8 Abs Monocytes 0.5 10^3/uL N 0-0.8 Abs Eosinophils 0.1 10^3/uL N 0-0.6 Abs Basophils 0.1 10^3/uL N 0-0.2 Granulocyte % 51.1 % N 38-83 Lymphocyte % 42.2 % N 25-47 Monocyte % 5.2 % N 1-9 Eosinophil % 0.7 % N 0-6 Basophil % 0.8 % N 0-2 Platelet Count 228 10^3/uL N 150-450 123 Mean Platelet Volume 8 um3 N 7.4-10.4 Abs Nucleated RBC 0 10^3/uL N Nucleated Red Blood Cells % 0 N Laboratory test finding 09/23/2014 [employer] [facility] Hemoglobin A1c 6.1 5-7 Laboratory test finding 08/03/2014 [employer] [facility] Hemoglobin A1c 5.4 5-7 Urinalysis Profile 06/28/2014 [facility] Urine Color Yellow N [address] [place] [address] [phone] Urine Appearance Clear N Urine Specific [place] > 1.060 High 1.010-1.030 Urine pH 5.0 N 5-9 Urine Urobilinogen Negative N Negative Urine Ketones Negative N Negative Urine Protein Negative N Negative Urine Leukocytes Negative N Negative Urine Blood Negative N Negative Urine Nitrite Negative N Negative Urine Bilirubin Negative N Negative Urine Glucose Negative N Negative CBC Auto 06/28/2014 [facility] White Blood 12.6 10^3/uL High 4.8-10.[address] [place] [address] [phone] Red Blood Count 5.13 10^6/uL N 4.0-5.4 Hemoglobin 15.4 g/dL N 14.0-18.0 Hematocrit 45 % N 42-52 Mean Corpuscular Volume 88 fL N 80-94 Mean Corpuscular Hemoglobin 30 pg N 27-31 Mean Corpuscular HGB Conc 34 g/dL N 31-36 Red Cell Distribution Width 15 % N 10.5-15 Platelet Count 257 10^3/uL N 150-450 Mean Platelet Volume 9 um3 N 7.4-10.4 Abs Neutrophils 9.1 10^3/uL High 1.5-7.7 Abs Lymphocytes 2.9 10^3/uL N 1.0-4.8 Abs Monocytes 0.5 10^3/uL N 0-0.8 Abs Eosinophils 0 10^3/uL N 0-0.6 Abs Basophils 0.1 10^3/uL N 0-0.2 Abs Nucleated RBC 0.02 10^3/uL N Granulocyte % 72.5 % N 38-83 Lymphocyte % 22.9 % Low 25-47 Monocyte % 3.8 % N 1-9 Eosinophil % 0.2 % N 0-6 Basophil % 0.6 % N 0-2 Nucleated Red Blood Cells % 0.1 N Comp Metabolic Panel 06/28/2014 [facility] Sodium 136 mmol/L N 133-145 [address] [place] [address] [phone] Potassium 3.5 mmol/L N 3.5-5.0 Chloride 100 mmol/L Low 101-111 Co2 Carbon Dioxide 27 mmol/L N 22-32 Anion Gap 9 mmol/L N 2-11 Glucose 141 mg/dL High 70-100 Blood Urea Nitrogen 15 mg/dL N 6-24 Creatinine 0.64 mg/dL Low 0.67-1.17 BUN/Creatinine Ratio 23.4 High 8-20 Calcium 9.3 mg/dL N 8.6-10.3 Total Protein 7.4 g/dL N 6.4-8.9 Albumin 4.3 g/dL N 3.2-5.2 Globulin 3.1 g/dL N 2-4 Albumin/Globulin Ratio 1.4 N 1-3 Total Bilirubin 0.60 mg/dL N 0.2-1.0 Alkaline Phosphatase 64 U/L N 34-104 Alt 16 U/L N 7-52 Ast 12 U/L Low 13-39 Egfr Non- 134.1 N >60 Egfr 172.4 N >60 124 Laboratory test finding 06/28/2014 [facility] Lipase 16 U/L N 11.0-82.0 [address] [place] [address] [phone] C Reactive Protein 16.80 mg/L High < 5.00 125 Stool For Blood 05/25/2014 [facility] Stool Occult (SEE NOTE) 126 [address] [facility] [place] [address] [phone] Urinalysis Profile 05/24/2014 [facility] Urine Color Yellow N [address] [place] [address] [phone] Urine Appearance Clear N Urine Specific [place] 1.050 High 1.010-1.030 Urine pH 5.0 N 5-9 Urine Urobilinogen Negative N Negative Urine Ketones Negative N Negative Urine Protein Negative N Negative Urine Leukocytes Negative N Negative Urine Blood Negative N Negative Urine Nitrite Negative N Negative Urine Bilirubin Negative N Negative Urine Glucose 2+(150 mg/dL) Abnormal Negative Laboratory test 05/24/2014 [facility] Lactic Acid 1.4 mmol/L N 0.5-2.[address] [place] [address] [phone] CBC Auto Diff 05/24/2014 [facility] White Blood 13.9 High 4.8- 10.[address] Count 10^3/[place] [address] [phone] Red Blood Count 4.77 10^6/uL N 4.0-5.4 Hemoglobin 14.5 g/dL N 14.0-18.0 Hematocrit 42 % N 42-52 Mean Corpuscular Volume 89 fL N 80-94 Mean Corpuscular Hemoglobin 30 pg N 27-31 Mean Corpuscular HGB Conc 34 g/dL N 31-36 Red Cell Distribution Width 15 % N 10.5-15 Platelet Count 287 10^3/uL N 150-450 Mean Platelet Volume 8 um3 N 7.4-10.4 Abs Neutrophils 9.0 10^3/uL High 1.5-7.7 Abs Lymphocytes 4.0 10^3/uL N 1.0-4.8 Abs Monocytes 0.8 10^3/uL N 0-0.8 Abs Eosinophils 0.1 10^3/uL N 0-0.6 Abs Basophils 0.1 10^3/uL N 0-0.2 Abs Nucleated RBC 0.03 10^3/uL N Granulocyte % 64.5 % N 38-83 Lymphocyte % 28.5 % N 25-47 Monocyte % 5.8 % N 1-9 Eosinophil % 0.6 % N 0-6 Basophil % 0.6 % N 0-2 Nucleated Red Blood Cells % 0.2 N Comp Metabolic Panel 05/24/2014 [facility] Sodium 133 mmol/L N 133-[address] [place] [address] [phone] Potassium 3.3 mmol/L Low 3.5-5.0 Chloride 100 mmol/L Low 101-111 Co2 Carbon Dioxide 26 mmol/L N 22-32 Anion Gap 7 mmol/L N 2-11 Glucose 265 mg/dL High 70-100 Blood Urea Nitrogen 15 mg/dL N 6-24 Creatinine 0.79 mg/dL N 0.67-1.17 BUN/Creatinine Ratio 19.0 N 8-20 Calcium 9.3 mg/dL N 8.6-10.3 Total Protein 7.3 g/dL N 6.4-8.9 Albumin 4.0 g/dL N 3.2-5.2 Globulin 3.3 g/dL N 2-4 Albumin/Globulin Ratio 1.2 N 1-3 Total Bilirubin 0.50 mg/dL N 0.2-1.0 Alkaline Phosphatase 85 U/L N 34-104 Alt 16 U/L N 7-52 Ast 11 U/L Low 13-39 Egfr Non- 105.1 N >60 Egfr 135.2 N >60 127 Laboratory test finding 05/24/2014 [facility] Lipase 39 U/L N 11.0-82.0 [address] [place] [address] [phone] C Reactive Protein 18.64 mg/L High < 5.00 128 Laboratory test 04/15/2014 [facility] Lactic Acid 1.0 mmol/L N 0.5-2.[address] [place] [address] [phone] CBC Auto Diff 04/15/2014 [facility] White Blood 6.9 10^3/uL N 4.8-10.[address] [place] [address] [phone] Red Blood Count 4.53 10^6/uL N 4.0-5.4 Hemoglobin 13.8 g/dL Low 14.0-18.0 Hematocrit 41 % Low 42-52 Mean Corpuscular Volume 90 fL N 80-94 Mean Corpuscular Hemoglobin 30 pg N 27-31 Mean Corpuscular HGB Conc 34 g/dL N 31-36 Red Cell Distribution Width 14 % N 10.5-15 Platelet Count 195 10^3/uL N 150-450 Mean Platelet Volume 8 um3 N 7.4-10.4 Abs Neutrophils 4.7 10^3/uL N 1.5-7.7 Abs Lymphocytes 1.6 10^3/uL N 1.0-4.8 Abs Monocytes 0.6 10^3/uL N 0-0.8 Abs Eosinophils 0 10^3/uL N 0-0.6 Abs Basophils 0 10^3/uL N 0-0.2 Abs Nucleated RBC 0.06 10^3/uL N Granulocyte % 68.0 % N 38-83 Lymphocyte % 23.2 % Low 25-47 Monocyte % 8.3 % N 1-9 Eosinophil % 0.2 % N 0-6 Basophil % 0.3 % N 0-2 Nucleated Red Blood Cells % 0.9 N Comp Metabolic Panel 04/15/2014 [facility] Sodium 133 mmol/L N 133-145 [address] [place] [address] [phone] Potassium 3.3 mmol/L Low 3.5-5.0 Chloride 99 mmol/L Low 101-111 Co2 Carbon Dioxide 28 mmol/L N 22-32 Anion Gap 6 mmol/L N 2-11 Glucose 121 mg/dL High 70-100 Blood Urea Nitrogen 8 mg/dL N 6-24 Creatinine 0.64 mg/dL Low 0.67-1.17 BUN/Creatinine Ratio 12.5 N 8-20 Calcium 9.1 mg/dL N 8.6-10.3 Total Protein 7.5 g/dL N 6.4-8.9 Albumin 4.0 g/dL N 3.2-5.2 Globulin 3.5 g/dL N 2-4 Albumin/Globulin Ratio 1.1 N 1-3 Total Bilirubin 0.60 mg/dL N 0.2-1.0 Alkaline Phosphatase 62 U/L N 34-104 Alt 16 U/L N 7-52 Ast 16 U/L N 13-39 Egfr Non- 134.1 N >60 Egfr 172.4 N >60 129 Laboratory test finding 04/15/2014 [facility] Amylase 35 U/L N 29-103 [address] [place] [address] [phone] Lipase 30 U/L N 11.0-82.0 Troponin I 0.00 ng/mL N <0.03 130 C Reactive Protein 43.66 mg/L High < 5.00 131 Lipid Profile 04/13/2014 [facility] Triglycerides 187 mg/dL N 132, 133 (Trig/Chol/HDL) [address] [place] [address] [phone] Cholesterol 126 mg/dL N 134 HDL Cholesterol 31.9 mg/dL N 135 LDL Cholesterol 57 mg/dL N 136 Triglycerides 187 mg/dL N 137 Cholesterol 126 mg/dL N 138 HDL Cholesterol 31.9 mg/dL N 139 LDL Cholesterol 57 mg/dL N 140 Urine Culture And 04/13/2014 [facility] Urine Culture (SEE NOTE ) [address] [place] [address] [phone] Comp Metabolic 04/13/2014 [facility] Sodium 136 mmol/L N 133- [address] [place] [address] [phone] Potassium 3.6 mmol/L N 3.5-5.0 Chloride 103 mmol/L N 101-111 Co2 Carbon Dioxide 26 mmol/L N 22-32 Anion Gap 7 mmol/L N 2-11 Glucose 190 mg/dL High 70-100 Blood Urea Nitrogen 10 mg/dL N 6-24 Creatinine 0.72 mg/dL N 0.67-1.17 BUN/Creatinine Ratio 13.9 N 8-20 Calcium 9.0 mg/dL N 8.6-10.3 Total Protein 7.0 g/dL N 6.4-8.9 Albumin 3.8 g/dL N 3.2-5.2 Globulin 3.2 g/dL N 2-4 Albumin/Globulin Ratio 1.2 N 1-3 Total Bilirubin 0.70 mg/dL N 0.2-1.0 Alkaline Phosphatase 67 U/L N 34-104 Alt 17 U/L N 7-52 Ast 20 U/L N 13-39 Egfr Non- 117.0 N >60 Egfr 150.5 N >60 142 Urinalysis Profile 04/13/2014 [facility] Urine Color Blossom N [address] [place] [address] [phone] Urine Appearance Clear N Urine Specific [place] 1.028 N 1.010-1.030 Urine pH 5.0 N 5-9 Urine Urobilinogen Positive Abnormal Negative Urine Ketones Trace Abnormal Negative Urine Protein Negative N Negative Urine Leukocytes Trace Abnormal Negative Urine Blood Negative N Negative Urine Nitrite Negative N Negative Urine Bilirubin Negative N Negative Urine Glucose Negative N Negative Urine White Blood Cell Trace(0-5/hpf) N Absent Urine Red Blood Cell Trace(0-2/hpf) N Absent Urine Squamous Epithelial Cell Present Abnormal Absent Urine Microalbumin 04/13/2014 [facility] Ur Microalbumin 15.0 mg /L N Random [address] (mg/L) [place] [address] [phone] Urine Creatinine 363.50 mg/dL N Urine Microalbumin/Creatinine 4.1 N Less Than 31 Laboratory test finding 04/09/2014 [facility] [address] Hemoglobin A1c 9.1 High 5 -7 1 Desirable: <150 Borderline High: 150-199 High: 200-499 Very High: >500 2 Desirable: <200 Borderline High: 200-239 High: >239 3 Low: <40 Desirable: 40-60 High: >60 4 Unable to calculate LDL as triglyceride is > 400 5 Desirable: <100 Near Optimal: 100-129 Borderline High: 130-159 High: 160-189 Very High: >189 6 REFERENCE VALUE Cutoff: 3.0 7 ADDITIONAL INFORMATION This report is intended for use in clinical monitoring and management of patients. It is not intended for use in employment-related testing. This test was developed and its performance characteristics determined by [facility] in a manner consistent with CLIA requirements. This test has not been cleared or approved by the U.S. Food and Drug Administration. Test Performed by: [facility] [address] [place] [address] 8 REFERENCE VALUE Cutoff: 500 9 REFERENCE VALUE Cutoff: 200 10 REFERENCE VALUE Cutoff: 100 11 REFERENCE VALUE Cutoff: 150 12 Presumptive Positive Drug confirmation to follow. Presumptive Positive means that the screening method is positive, but the test needs to be run by a confirmatory method before being finalized. ADDITIONAL INFORMATION This report is intended for use in clinical monitoring or management of patients. It is not intended for use in employment-related testing. 13 REFERENCE VALUE Cutoff: 200 mg/L 14 Tylenol 3 15 Metabolite of codeine REFERENCE VALUE Cutoff: 100 16 Alix Ewing, MS Contin; Also a minor metabolite (10%) of codeine and can be seen in low concentrations (<2,000 ng/mL) with poppy seed ingestion. 17 Metabolite of morphine REFERENCE VALUE Cutoff: 100 18 Metabolite of heroin 19 Lortab, [place], Vicodin; Also a very minor metabolite of codeine and impurity (<1%) of oxycodone. 20 Metabolite of hydrocodone 21 Metabolite of hydrocodone 22 Dilaudid, Exalgo; Also a metabolite of hydrocodone and a minor (<5%) metabolite of morphine. 23 Metabolite of hydromorphone REFERENCE VALUE Cutoff: 100 24 Endocet, Percocet, Oxycontin 25 Metabolite of oxycodone 26 Numorphan, Opana; Also a metabolite of oxycodone. 27 Metabolite of oxymorphone REFERENCE VALUE Cutoff: 100 28 Metabolite of oxymorphone 29 Actiq, Duragesic, F[place] 30 Metabolite of fentanyl 31 Demerol 32 Metabolite of meperidine 33 Narcan 34 Metabolite of naloxone REFERENCE VALUE Cutoff: 100 35 Dolophine 36 Metabolite of methadone 37 Darvon, Darvocet 38 Metabolite of propoxyphene 39 Tradol, Ultram, Ultracet 40 Metabolite of tramadol 41 Nucynta 42 Metabolite of tapentadol 43 Metabolite of tapentadol REFERENCE VALUE Cutoff: 100 44 Buprenex, Suboxone 45 Metabolite of buprenorphine 46 Metabolite of buprenorphine 47 Test detected the presence of oxycodone and several metabolites (noroxycodone, noroxymorphone, and egpwiipyfsh-2-scau-glucuronide). Suspect use of oxycodone and/or oxymorphone within the past three days. ADDITIONAL INFORMATION This test was developed and its performance characteristics determined by [facility] in a manner consistent with CLIA requirements. This test has not been cleared or approved by the U.S. Food and Drug Administration. Test Performed by: [facility] [address] [place] [address] 48 Leach Runner: [id number] Leach Runner: [id number] Leach Runner: [id number] 51 Desirable: <150 Borderline High: 150-199 High: 200-499 Very High: >500 52 Desirable: <200 Borderline High: 200-239 High: >239 53 Low: <40 Desirable: 40-60 High: >60 54 Unable to calculate LDL as triglyceride is > 400 55 Desirable: <100 Near Optimal: 100-129 Borderline High: 130-159 High: 160-189 Very High: >189 56 Therapeutic target for the treatment of diabetes mellitus patients is <7% HBA1C, and in selective patients <6.0%. Please refer to [place] [employer] diabetic care guidelines for further information. 57 Desirable: <150 Borderline High: 150-199 High: 200-499 Very High: >500 58 Desirable: <200 Borderline High: 200-239 High: >239 59 Low: <40 Desirable: 40-60 High: >60 60 Unable to calculate LDL as triglyceride is > 400 61 Desirable: <100 Near Optimal: 100-129 Borderline High: 130-159 High: 160-189 Very High: >189 62 Leach Runner: [id number] 63 Because ethnic data is not always readily available, this report includes an eGFR for both -Americans and non- Americans. The National Kidney Disease Education Program (NKDEP) does not endorse the use of the MDRD equation for patients that are not between the ages of 18 and 70, are , have extremes of body size, muscle mass, or nutritional status, or are non- or non-. According to the National Kidney Foundation, irrespective of diagnosis, the stage of the disease is based on the level of kidney function: Stage Description GFR(mL/min/1.73 m(2)) 1 Kidney damage with normal or decreased GFR 90 2 Kidney damage with mild decrease in GFR 60-89 3 Moderate decrease in GFR 30-59 4 Severe decrease in GFR 15-29 5 Kidney failure <15 (or dialysis) 64 Therapeutic target for the treatment of diabetes mellitus patients is <7% HBA1C, and in selective patients <6.0%. Please refer to [place] [employer] diabetic care guidelines for further information. 65 Desirable: <150 Borderline High: 150-199 High: 200-499 Very High: >500 66 Desirable: <200 Borderline High: 200-239 High: >239 67 Low: <40 Desirable: 40-60 High: >60 68 Desirable: <100 Near Optimal: 100-129 Borderline High: 130-159 High: 160-189 Very High: >189 69 SEE RESULT BELOW Name: EMILIANO HAYNES : [address]: Prachi Steele MD Acct: [id number] Unit: [id number] AGE: 52 Location: [facility] Re04/16/17 SEX: M Status: DEP SDC SPEC: [id number] TERESA: 04/16/[address] [facility] [address]: Prachi Steele MD REQ: [id number] RECD: 04/16/17 STATUS: KATJA MELTON DR: Janak Cat MD _ SOURCE: HAND,RIGHT SPDESC: ORDERED: Culture Stain QUERIES: Specimen Description RIGHT INDEX Procedure Result Reported Site Wound/Misc Gram Stain Final 04/16/17- 180 ML 1+ Epithelial Cells 2+ Neutrophils 2+ Gram Positive Cocci Wound/Misc Culture Final 04/18/17- 918 ML Organism 1 MRSA Quantity 2+ Consistent with previous results. 1. MRSA M.I.C. RX --------- ------ Penicillin >=0.5 R Clindamycin <=0.25 S Erythromycin >=8 R Gentamicin <=0.5 S Linezolid 2 S Nitrofurantoin <=16 S Oxacillin >=4 R * Quinupristin/Dalfopristin <=0.25 S Rifampin <=0.5 S Tetracycline <=1 S Doxycycline - Deduced S * Minocycline - Deduced S CONTINUED ON NEXT PAGE * ML=Testing performed at Main Lab DEPARTMENT OF PATHOLOGY, [address] [place] [address] Trey Sequeira M.D. Director [facility] # [id number] Patient: EMILIANO HAYNES [id number] (Continued) Specimen: [id number] Collected: 04/16/17 Received: 04/16/17 (Continued) Procedure Result Reported Site Wound/Misc Culture Final (continued) 04/18/17- 918 1. MRSA (continued) M.I.C. RX --------- ------ Trimethoprim/Sulfamethoxazole <=10 S Vancomycin 1 S Imipenem-Deduced R * Ampicillin/Sulbactam-Deduced R Cefazolin-Deduced R * These antibiotics are not available in the [facility] Formulary Contact the Microbiology Department for any additional antibiotic reporting. * ML - MAIN LAB ([facility]) . END OF REPORT * ML=Testing performed at Main Lab DEPARTMENT OF PATHOLOGY, [address] [place] [address] Trey Sequeira M.D. Director DIANA # [id number] 70 SEE RESULT BELOW Name: EMILIANO HAYNES Ron : [address]: Prachi Steele MD Acct: [id number] Unit: [id number] AGE: 52 Location: [facility] Re04/16/17 SEX: M Status: DEP SDC SPEC: [id number] TERESA: 04/16/[address] [facility] [address]: Prachi Steele MD REQ: [id number] RECD: 04/16/17 STATUS: KATJA MELTON DR: Janak Cat MD _ SOURCE: WOUND SPDESC: ORDERED: Anaerobic Cult COMMENTS: R HAND Procedure Result Reported Site Anaerobic Culture Final 04/20/17- 919 ML Anaerobe Culture No Anaerobes Day 4 * ML - MAIN LAB ([facility]) . END OF REPORT * ML=Testing performed at Main Lab DEPARTMENT OF PATHOLOGY, [address] [place] [address] Trey Sequeira M.D. Director [facility] # [id number] 71 Leach Runner: [id number] 72 SEE RESULT BELOW Name: EMILIANO HAYNES : [address]: Cecelia Moreira MD Acct: [id number] Unit: [id number] AGE: 52 Location: ED Re04/14/17 SEX: M Status: DEP ER SPEC: [id number] TERESA: 04/14/[address] [facility] [address]: Cecelia Moreira MD REQ: [id number] RECD: 04/14/17 STATUS: KATJA MELTON DR: Bill Cat MD _ SOURCE: FINGER SPDESC:INDEX RHT ORDERED: Culture Stain Procedure Result Reported Site Wound/Misc Gram Stain Final 04/14/17713 ML 1+ Epithelial Cells No Neutrophils Observed No Organisms Seen Wound/Misc Culture Final 04/16/17- 826 ML Organism 1 MRSA Quantity 1+ 1. MRSA M.I.C. RX --------- ------ Penicillin >=0.5 R Clindamycin <=0.25 S Erythromycin >=8 R Gentamicin <=0.5 S Linezolid 2 S Nitrofurantoin <=16 S Oxacillin >=4 R * Quinupristin/Dalfopristin <=0.25 S Rifampin <=0.5 S Tetracycline <=1 S Doxycycline - Deduced S * Minocycline - Deduced S Trimethoprim/Sulfamethoxazole <=10 S Vancomycin 1 S Imipenem-Deduced R * Ampicillin/Sulbactam-Deduced R CONTINUED ON NEXT PAGE * ML=Testing performed at Main Lab DEPARTMENT OF PATHOLOGY, [address] [place] [address] Trey Sequeira M.D. Director DIANA # [id number] Patient: EMILIANO HAYNES [id number] (Continued) Specimen: [id number] Collected: 04/14/17 Received: 04/14/17 (Continued) Procedure Result Reported Site Wound/Misc Culture Final (continued) 04/16/17826 1. MRSA (continued) M.I.C. RX --------- ------ Cefazolin-Deduced R * These antibiotics are not available in the [facility] Formulary Contact the Microbiology Department for any additional antibiotic reporting. * ML - MAIN LAB ([facility]) . END OF REPORT * ML=Testing performed at Main Lab DEPARTMENT OF PATHOLOGY, [address] [place] [address] Trey Sequeira M.D. Director [facility] # [id number] 73 Desirable: <150 Borderline High: 150-199 High: 200-499 Very High: >500 74 Desirable: <200 Borderline High: 200-239 High: >239 75 Low: <40 Desirable: 40-60 High: >60 76 Unable to calculate LDL as triglyceride is > 400 77 FASTING 10 HOUR 78 Desirable: <100 Near Optimal: 100-129 Borderline High: 130-159 High: 160-189 Very High: >189 79 [id number] Because ethnic data is not always readily available, this report includes an eGFR for both -Americans and non- Americans. The National Kidney Disease Education Program (NKDEP) does not endorse the use of the MDRD equation for patients that are not between the ages of 18 and 70, are , have extremes of body size, muscle mass, or nutritional status, or are non- or non-. According to the National Kidney Foundation, irrespective of diagnosis, the stage of the disease is based on the level of kidney function: Stage Description GFR(mL/min/1.73 m(2)) 1 Kidney damage with normal or decreased GFR 90 2 Kidney damage with mild decrease in GFR 60-89 3 Moderate decrease in GFR 30-59 4 Severe decrease in GFR 15-29 5 Kidney failure <15 (or dialysis) 81 Desirable <150 Borderline high 150-199 High 200-499 Very High >500 82 Desirable <200 Borderline high 200-239 High >239 83 Low <40 Desirable: 40-60 High: >60 84 Unable to calculate LDL as triglyceride is > 400 85 Desirable <150 Borderline high 150-199 High 200-499 Very High >500 86 Desirable <200 Borderline high 200-239 High >239 87 Low <40 Desirable: 40-60 High: >60 88 Desirable: <100 mg/dL Near Optimal: 100-129 mg/dL Borderline High: 130-159 mg/dL High: 160-189 mg/dL Very High: >189 mg/dL 89 Because ethnic data is not always readily available, this report includes an eGFR for both -Americans and non- Americans. The National Kidney Disease Education Program (NKDEP) does not endorse the use of the MDRD equation for patients that are not between the ages of 18 and 70, are , have extremes of body size, muscle mass, or nutritional status, or are non- or non-. According to the National Kidney Foundation, irrespective of diagnosis, the stage of the disease is based on the level of kidney function: Stage Description GFR(mL/min/1.73 m(2)) 1 Kidney damage with normal or decreased GFR 90 2 Kidney damage with mild decrease in GFR 60-89 3 Moderate decrease in GFR 30-59 4 Severe decrease in GFR 15-29 5 Kidney failure <15 (or dialysis) 90 Leach Runner: [id number] ARNOLD Jimenez 91 Because ethnic data is not always readily available, this report includes an eGFR for both -Americans and non- Americans. The National Kidney Disease Education Program (NKDEP) does not endorse the use of the MDRD equation for patients that are not between the ages of 18 and 70, are , have extremes of body size, muscle mass, or nutritional status, or are non- or non-. According to the National Kidney Foundation, irrespective of diagnosis, the stage of the disease is based on the level of kidney function: Stage Description GFR(mL/min/1.73 m(2)) 1 Kidney damage with normal or decreased GFR 90 2 Kidney damage with mild decrease in GFR 60-89 3 Moderate decrease in GFR 30-59 4 Severe decrease in GFR 15-29 5 Kidney failure <15 (or dialysis) 92 Acute inflammation: >10.00 93 [facility] Severe Sepsis and Septic Shock Management Bundle Measure requires all lactic acids initially measuring >2.0 mmol/L be repeated. 94 SEE RESULT BELOW Name: EMILIANO HAYNES : [address]: Sean Rahman MD Acct: [id number] Unit: [id number] AGE: 50 Location: ED Re11/30/15 SEX: M Status: DEP ER SPEC: [id number] TERESA: 11/30/15-[address]: Sean Rahman MD REQ: [id number] RECD: 11/30/15 STATUS: KATJA MELTON DR: Bill Cat MD _ SOURCE: URINE SPDESC: ORDERED: Urine Culture Procedure Result Reported Site Urine Culture Final 12/01/15- 1711 ML No Growth (<1,000 CFU/mL) * ML - MAIN LAB ([facility]) . END OF REPORT * ML=Testing performed at Main Lab DEPARTMENT OF PATHOLOGY, [address] [place] [address] Trey Sequeira M.D. Director [facility] # [id number] 95 SEE RESULT BELOW Name: EMILIANO HAYNES : [address]: Sean Rahman MD Acct: [id number] Unit: [id number] AGE: 50 Location: ED Re11/30/15 SEX: M Status: DEP ER SPEC: [id number] TERESA: 11/30/[address] [facility] [address]: Sean Rahman MD REQ: [id number] RECD: 11/30/15 STATUS: KATJA MELTON DR: Bill Cat MD _ SOURCE: BLOOD,VENO SPDESC: ORDERED: Blood Cult Procedure Result Reported Site Aerobic Culture Bottle Final 12/05/15- 1902 ML No Growth Day 5 Anaerobic Culture Bottle Final 12/05/15- 1902 ML No Growth Day 5 * ML - MAIN LAB ([facility]) . END OF REPORT * ML=Testing performed at Main Lab DEPARTMENT OF PATHOLOGY, [address] [place] [address] Trey Sequeira M.D. Director [facility] # [id number] 96 Because ethnic data is not always readily available, this report includes an eGFR for both -Americans and non- Americans. The National Kidney Disease Education Program (NKDEP) does not endorse the use of the MDRD equation for patients that are not between the ages of 18 and 70, are , have extremes of body size, muscle mass, or nutritional status, or are non- or non-. According to the National Kidney Foundation, irrespective of diagnosis, the stage of the disease is based on the level of kidney function: Stage Description GFR(mL/min/1.73 m(2)) 1 Kidney damage with normal or decreased GFR 90 2 Kidney damage with mild decrease in GFR 60-89 3 Moderate decrease in GFR 30-59 4 Severe decrease in GFR 15-29 5 Kidney failure <15 (or dialysis) 97 Acute inflammation: >10.00 98 Because ethnic data is not always readily available, this report includes an eGFR for both -Americans and non- Americans. The National Kidney Disease Education Program (NKDEP) does not endorse the use of the MDRD equation for patients that are not between the ages of 18 and 70, are , have extremes of body size, muscle mass, or nutritional status, or are non- or non-. According to the National Kidney Foundation, irrespective of diagnosis, the stage of the disease is based on the level of kidney function: Stage Description GFR(mL/min/1.73 m(2)) 1 Kidney damage with normal or decreased GFR 90 2 Kidney damage with mild decrease in GFR 60-89 3 Moderate decrease in GFR 30-59 4 Severe decrease in GFR 15-29 5 Kidney failure <15 (or dialysis) 99 Desirable <150 Borderline high 150-199 High 200-499 Very High >500 100 Desirable <200 Borderline high 200-239 High >239 101 Low <40 Desirable: 40-60 High: >60 102 Desirable: <100 mg/dL Near Optimal: 100-129 mg/dL Borderline High: 130-159 mg/dL High: 160-189 mg/dL Very High: >189 mg/dL 103 Desirable <150 Borderline high 150-199 High 200-499 Very High >500 104 Desirable <200 Borderline high 200-239 High >239 105 Low <40 Desirable: 40-60 High: >60 106 Unable to calculate LDL as triglyceride is > 400 107 Because ethnic data is not always readily available, this report includes an eGFR for both -Americans and non- Americans. The National Kidney Disease Education Program (NKDEP) does not endorse the use of the MDRD equation for patients that are not between the ages of 18 and 70, are , have extremes of body size, muscle mass, or nutritional status, or are non- or non-. According to the National Kidney Foundation, irrespective of diagnosis, the stage of the disease is based on the level of kidney function: Stage Description GFR(mL/min/1.73 m(2)) 1 Kidney damage with normal or decreased GFR 90 2 Kidney damage with mild decrease in GFR 60-89 3 Moderate decrease in GFR 30-59 4 Severe decrease in GFR 15-29 5 Kidney failure <15 (or dialysis) 108 Serum levels of PSA measured using the [employer] DXI Hybritech immunoassay should not be interpreted as absolute evidence of the presence or absence of disease. The PSA value should be used in conjunction with other pertinent clinical diagnostic procedures. A PSA value in the range of 0.1 to 0.6 ng/ml is indeterminate if being used as an indicator of recurrent or residual disease. The values obtained with different assay methods or kits cannot be used interchangeably. 109 Desirable <150 Borderline high 150-199 High 200-499 Very High >500 110 Desirable <200 Borderline high 200-239 High >239 111 Low <40 Desirable: 40-60 High: >60 112 Because ethnic data is not always readily available, this report includes an eGFR for both -Americans and non- Americans. The National Kidney Disease Education Program (NKDEP) does not endorse the use of the MDRD equation for patients that are not between the ages of 18 and 70, are , have extremes of body size, muscle mass, or nutritional status, or are non- or non-. According to the National Kidney Foundation, irrespective of diagnosis, the stage of the disease is based on the level of kidney function: Stage Description GFR(mL/min/1.73 m(2)) 1 Kidney damage with normal or decreased GFR 90 2 Kidney damage with mild decrease in GFR 60-89 3 Moderate decrease in GFR 30-59 4 Severe decrease in GFR 15-29 5 Kidney failure <15 (or dialysis) 113 Therapeutic target for the treatment of diabetes Mellitus patients is <7% HBA1C, and in selective patients <6.0%.Please refer to [employer] Diabetic care guidelines for further information. 114 Desirable <200 Borderline high 200-239 High >239 115 Low <40 Desirable: 40-60 High: >60 116 Desirable <150 Borderline high 150-199 High 200-499 Very High >500 117 Specimen Lipemic. Result may not be valid. 118 Because ethnic data is not always readily available, this report includes an eGFR for both -Americans and non- Americans. The National Kidney Disease Education Program (NKDEP) does not endorse the use of the MDRD equation for patients that are not between the ages of 18 and 70, are , have extremes of body size, muscle mass, or nutritional status, or are non- or non-. According to the National Kidney Foundation, irrespective of diagnosis, the stage of the disease is based on the level of kidney function: Stage Description GFR(mL/min/1.73 m(2)) 1 Kidney damage with normal or decreased GFR 90 2 Kidney damage with mild decrease in GFR 60-89 3 Moderate decrease in GFR 30-59 4 Severe decrease in GFR 15-29 5 Kidney failure <15 (or dialysis) 119 AA 01/18 120 Because ethnic data is not always readily available, this report includes an eGFR for both -Americans and non- Americans. The National Kidney Disease Education Program (NKDEP) does not endorse the use of the MDRD equation for patients that are not between the ages of 18 and 70, are , have extremes of body size, muscle mass, or nutritional status, or are non- or non-. According to the National Kidney Foundation, irrespective of diagnosis, the stage of the disease is based on the level of kidney function: Stage Description GFR(mL/min/1.73 m(2)) 1 Kidney damage with normal or decreased GFR 90 2 Kidney damage with mild decrease in GFR 60-89 3 Moderate decrease in GFR 30-59 4 Severe decrease in GFR 15-29 5 Kidney failure <15 (or dialysis) 121 AA 11/02 122 Because ethnic data is not always readily available, this report includes an eGFR for both -Americans and non- Americans. The National Kidney Disease Education Program (NKDEP) does not endorse the use of the MDRD equation for patients that are not between the ages of 18 and 70, are , have extremes of body size, muscle mass, or nutritional status, or are non- or non-. According to the National Kidney Foundation, irrespective of diagnosis, the stage of the disease is based on the level of kidney function: Stage Description GFR(mL/min/1.73 m(2)) 1 Kidney damage with normal or decreased GFR 90 2 Kidney damage with mild decrease in GFR 60-89 3 Moderate decrease in GFR 30-59 4 Severe decrease in GFR 15-29 5 Kidney failure <15 (or dialysis) 123 Platelet count confirmed by smear estimate. 124 Because ethnic data is not always readily available, this report includes an eGFR for both -Americans and non- Americans. The National Kidney Disease Education Program (NKDEP) does not endorse the

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
[2018-09-20] MEDS ORDERED: NS 0.9% 1000 ML** 1,000 ML IV ONE (04:22)
[2018-09-20] MEDS ORDERED: Metoclopramide IV* 5 MG/ML 2 ML VIAL IV SLOW PU ONE (04:22)
[2018-09-20] MEDS ORDERED: Morphine 4 MG/ML VIAL (1 ml) 4 MG/ML VIAL IV ONE ×2 (04:34→06:39)
[2018-09-20 04:50] LABS: ABS Basophils 0.1 10^3/ul (0-0.2); ABS Lymphocytes 1.5 10^3/ul (1.0-4.8); ABS Monocytes 0.7 10^3/ul (0-0.8); ABS Neutrophils 10.8 10^3/ul (1.5-7.7); Eosinophil % 0.1 %; Hematocrit 44 % (42-52); Hemoglobin 15.3 g/dL (14.0-18.0); Lymphocyte % 11.5 %; Mean Corpuscular HGB Conc 35 g/dL (31-36); Mean Corpuscular Hemoglobin 30 pg (27-31); Mean Corpuscular Volume 86 fL (80-94); Mean Platelet Volume 8.3 fL (7.4-10.4); Platelet Count 217 10^3/uL (150-450); Red Blood Count 5.16 10^6 /uL (4.18-5.48); Red Cell Distribution Width 15 % (10-15); White Blood Count 13.1 10^3/uL (3.5-10.8)
[2018-09-20 05:08] LABS: Albumin 4.4 g/dL (3.2-5.2); Albumin/Globulin Ratio 1.4 (1-3); C Reactive Protein 13.78 mg/L (<8.01); Calcium 9.7 mg/dL (8.6-10.3); EGFR African American 95.3 (>60); EGFR Non-African American 78.8 (>60); Globulin 3.2 g/dL (2-4); Magnesium 2.1 mg/dL (1.9-2.7); Potassium 4.4 mmol/L (3.5-5.0); Total Bilirubin 0.6 mg/dL (0.2-1.0); Total Protein 7.6 g/dL (6.4-8.9)
[2018-09-20 05:13] LABS: Activated Partial Thrombo Time 32.6 seconds (26.0-38.0); INR 1.02 (0.82-1.09)
[2018-09-20] MEDS ORDERED: Iohexol 300* (CONTRAST) 10 ML SDV IV ONE (05:55)
[2018-09-20] MEDS ORDERED: Iodixanol* (CONTRAST) 320 MG/ML 100 ML SDV IV ONE (05:59)
--- NOTE | 2018-09-20 07:16 | ED ---
Progress - Progress Note Progress Note: This patient is a sign-out from Dr. Cecelia Moreira to Dr. Fidel Hardy at shift change on 09/20/[address] A/P. CT A/P interpreted by radiologist reveals: There is a 5 mm calculus noted in the proximal left ureter. There is associated mild to moderate left-sided hydroureteronephrosis with surrounding perinephric fat stranding. Dr. Hardy has reviewed this radiology report. Re-Evaluation - Re-Evaluation First Eval Re-Evaluation Time: 07:41 Comment: Discussed results with patient. Patient reports pain, so I will give him a dose of Dilaudid. Second Eval Re-Evaluation Time: 09:16 Comment: Discussed results with patient and plan for discharge to pass stone at home with fluids. However, patient reports pain of 6/10 in the room. Therefore, I will order a prescription for Percocet. Patient states his insurance will not approve the prescription but he also does not want to be transferred to another care facility. I will attempt to contact Dr. 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 Third Eval Re-Evaluation Time: 10:15 Comment: Patient still reports pain. I discussed Dr. Samson's recommendations with the patient who again stated he did not want to transfer to another facility. Therefore, the patient will be discharged home with diagnosis of renal calculi and instructions to follow-up with Dr. Samson in two days. He was also told to either return here or go to another hospital if the pain is too much. Patient understands and agrees with this plan. Course/Dx - Course Course Of Treatment: This patient is a sign-out from Dr. Cecelia Moreira to Dr. Fidel Hardy at shift change on 09/20/[address] A/P. CT A/P reveals: There is a 5 mm calculus noted in the proximal left ureter. There is associated mild to moderate left-sided hydroureteronephrosis with surrounding perinephric fat stranding. In the ED course, patient received Dilaudid, Toradol , and Flomax. Following treatment with Dilaudid, patient still reports pain so I recommended he be discharged home with a prescription for Percocet. Patient does not want to be transferred to another hospital for care. I consulted with Dr. Samson who said he cannot accept the patient as he is not on-call right now. Dr. Samson recommended the patient be transferred and given Toradol. I discussed this with the patient who again stated he did not want to transfer to another facility. Therefore, the patient will be discharged home with diagnosis of renal calculi and instructions to follow-up with Dr. Samson in two days. He was also told to either return here or go to another hospital if the pain is too much. Patient understands and agrees with this plan. - Diagnoses Provider Diagnoses: Renal calculi - Provider Notifications Discussed Care Of Patient With: Lavell Samson Time Discussed With Above Provider: 10:11 Instructed by Provider To: Other - Discussed patient case with Dr. 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 He recommended the patient be transported to another facility and given Toradol. Discharge - Sign-Out/Discharge Documenting (check all that apply): Patient Departure - Discharge Patient Received Moderate/Deep Sedation with Procedure: No - Discharge Plan Condition: Stable Disposition: HOME Prescriptions: Oxycodone HCl/Acetaminophen [Percocet] 1 tab PO TID #15 tab MDD 3 Tamsulosin CAP* [Flomax CAP*] 0.4 mg PO DAILY #10 cap Patient Education Materials: Kidney Stones (ED) Referrals: Alexandra Jimenes MD [Primary Care Provider] - 3 Days Lavell Samson MD [Medical Doctor] - 2 Days Additional Instructions: Follow up with your primary care provider in three days and with Dr. Samson on Saturday. RETURN TO THE ER FOR WORSENING OR CHANGING SYMPTOMS. - Billing Disposition and Condition Condition: STABLE Disposition: Home - Attestation Statements Document Initiated by Robel: Yes Documenting Scribe: Chance Harris Provider For Whom Robel is Documenting (Include Credential): Fidel Hardy MD Scribe Attestation: I, Chance Harris, scribed for Fidel Hardy MD on 09/20/18 at 1849. Scribe Documentation Reviewed: Yes Provider Attestation: The documentation as recorded by the Chance cote accurately reflects the service I personally performed and the decisions made by me, Fidel Hardy MD Status of Scribe Document: Viewed
[2018-09-20] MEDS ORDERED: HYDROmorphone INJ1* 1 MG/ML SYRINGE IV ONE (07:45)
[2018-09-20 08:24] LABS: Urine Appearance Clear; Urine Bacteria Absent (Absent); Urine Bilirubin Negative (Negative); Urine Blood 3+ (Negative); Urine Color Yellow; Urine Glucose 3+(>=500 mg/dL) (Negative); Urine Ketones Negative (Negative); Urine Nitrite Negative (Negative); Urine Protein Negative (Negative); Urine Red Blood Cell 1+(3-5/hpf) (Absent); Urine Specific Gravity 1.057 (1.010-1.030); Urine Urobilinogen Negative (Negative); Urine White Blood Cell Absent (Absent)
[2018-09-20] MEDS ORDERED: Ketorolac INJ* 30 MG/ML 1 ML VIAL IV PUSH ONE (10:08)
[2018-09-20] MEDS ORDERED: Tamsulosin CAP* 0.4 MG PO ONE (10:20)
[2018-09-20 10:27] VITALS: BP 142/97
== END 2018-09-20 10:26 | disposition home or self-care (01) ==
LOC: ED 02:22
DX: N20.0 Calculus of kidney (principal); E11.9 Type 2 diabetes mellitus without complications; F17.210 Nicotine dependence, cigarettes, uncomplicated
CPT/HCPCS: 36415; 74177; 80053; 81003; 81015; 82150; 83690; 83735; 85025; 85610; 85730; 86140; 96361; 96374; 96375; 99283; J1170; J1885; J2270; J2765; Q9967

== ENCOUNTER 2019-03-06 08:30 | Day surgery (SDC) | payer MEDICAID ==
--- NOTE | 2019-02-12 10:25 | HP ---
AMENDED REPORT NOW INCLUDES DESIGNATED COSIGNER CC: Dr. Jimenes * PREOPERATIVE HISTORY AND PHYSICAL: DATE OF ADMISSION/SURGERY: 03/10/19 This patient is scheduled for same-day surgery admission by Dr. Jimenez on 03/10. DATE OF PREOPERATIVE HISTORY AND PHYSICAL EXAMINATION: 02/10/19 ATTENDING SURGEON: Dr. Yvon Jimenez * (dictated by Nneka Hodgson NP). CHIEF COMPLAINT: Mass, left chest. HISTORY OF PRESENT ILLNESS: The patient is a 54-year-old male who presented to the office for evaluation of a lump on the left lateral chest. He reported noticing this about 1 year ago and has not noticed any change in size; he recently saw his primary care provider, Dr. Jimenes, who recommended excision; he denies any pain; he denies any trauma to the area; he did have left shoulder surgery for rotator cuff in March 2018. He reports no history of infections of the surrounding skin. Dr. Jimenez examined the patient and noted a palpable subcutaneous mass in the region of the lateral left chest just below the axilla ; the mass measures approximately 4 cm x 2.4 cm and is mobile, rubbery, and nontender; there is an adjacent scar which is well healed, there is no overlying erythema or other skin change. Prior ultrasound reports from May 2018 and August [address] Jimenez, there was no interval change in size. Dr. 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 Jimenez recommended excision of the mass of the left chest wall as a same-day surgery procedure. The patient is agreeable to proceed; Dr. Jimenez discussed the nature of the surgical procedure, the relevant risks and benefits, and today I reviewed the expected postoperative care and recovery. The patient has had a chance to ask questions and stated that he understands the information and is satisfied with the answers given to his questions. He will sign surgical consent on the day of surgery. PAST MEDICAL HISTORY: Significant for morbid obesity, type 2 diabetes mellitus , hyperlipidemia, chronic neck and joint pain. PAST SURGICAL HISTORY: August 2018, revision of left shoulder arthroscopy; 2016, revision of anterior cervical diskectomy and fusion; 2015, cysto stent for left ureteral kidney stone; June 2014, laparotomy with sigmoid colectomy and colostomy; December 2014, reversal of colostomy. MEDICATIONS: 1. Farxiga 10 mg p.o. daily in the morning. 2. Glipizide 5 mg 2 tablets by mouth every morning with breakfast and every evening with dinner. 3. Metformin 1000 mg p.o. b.i.d. and he will hold that on the day before surgery. 4. Soma 350 mg p.o. t.i.d. p.r.n. 5. Oxycodone 10 mg 1 tablet 5 times a day and this is prescribed through the pain clinic. 6. Medical marijuana 2 to 3 puffs t.i.d. ALLERGIES: No known drug allergies. FAMILY HISTORY: No known anesthesia complication, bleeding tendencies, or clotting disorders. Mother has a history of diabetes. SOCIAL HISTORY: He is single and is on disability; he smokes 10 cigarettes per day and also smokes medical marijuana. He denies the use of alcohol. REVIEW OF SYSTEMS: Constitutional: No fevers, chills, excessive fatigue or weight loss. General: No previous anesthesia complications. No history of deep vein thrombosis or pulmonary embolism. No unusual bleeding or blood transfusions. No history of MRSA. Endocrine: Type 2 diabetes mellitus. Fingerstick blood sugar typically running between 120 and 150. 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 Hematologic: No easy bruising or bleeding. Respiratory: No dyspnea on exertion. No chronic cough. Cardiovascular: No anginal chest pain or palpitations. Gastrointestinal: No nausea, vomiting, diarrhea, GI bleeding, constipation or change in bowel habits. Genitourinary: No dysuria. Musculoskeletal: Chronic neck and joint pain. Otherwise normal strength and tone. Integumentary: Palpable mass, left chest wall as described in history of present illness. No other skin changes. Neurologic: No headache or blurred vision. No areas of focal weakness or numbness. Psychiatric: No anxiety, depression, or insomnia reported. PHYSICAL EXAMINATION GENERAL SURVEY: The patient is a 54-year-old male, obese, well developed, in no acute distress. VITAL SIGNS: Height 70 inches, weight 240 pounds, body mass index 34.4. Blood pressure 132/74, pulse 78 and regular, respiratory rate 16, temperature 97.2 tympanic. HEENT: Benign. NECK: Supple. No cervical lymphadenopathy. LUNGS: Breath sounds bilaterally clear and equal. Chest with palpable mass in left chest wall just below the axilla. There is a mobile, rubbery, nontender mass measuring approximately 4 cm x 2.5 cm. No overlying erythema and just below the mass, there is a well-healed scar. HEART: Regular rate and rhythm. No murmurs or rubs appreciated. ABDOMEN: Active bowel sounds. Multiple well-healed surgical scars. Obese, soft, nondistended, nontender throughout. EXTREMITIES: Warm without edema or skin ulceration. GENITALIA EXAM: Deferred. RECTAL EXAM: Deferred. NEUROLOGIC: Alert and oriented x3. Steady gait. SKIN: Warm, dry, intact. IMPRESSION: Left chest wall mass. PLAN: Same-day surgery admission to Dr. Jimenez' service on 03/10/19 for excision of mass of the left chest wall. TIME SPENT: Sixty minutes with greater than 50% in [id number], history taking , physical exam, and patient education. ERMELINDA HODGSON, HAMZAH [id number]/[facility] #: [id number] ETHAN
[~2019-03-06 08:30] MED LIST changes: -Atracurium* 10 MG/ML 10 ML VIAL ONE; -Buffered Lidocaine 0.9% SYRIN* 5 ML/SYR SYRINGE INTRADERM ONE; +Buffered Lidocaine 1% SYRIN* 1 ML/SYRINGE INTRADERM ONE; -Dexamethasone IV* 4 MG/ML 1 ML (4 MG) IV SLOW PU ONE; -Dexamethasone IV* 4 MG/ML 1 ML (4 MG) ONE; -DiMENhydriNATE IV* 50 MG/ML VIAL IV PUSH PRN; -EPHEDrine (Pressors)* 50 MG/ML VIAL ONE; -Famotidine IV* 10 MG/ML 2 ML (20 mg) ONE; -Famotidine TAB* 20 MG ONE; -Famotidine TAB* 20 MG PO ONE; -HYDROmorphone INJ1* 1 MG/ML SYRINGE IV PRN; -Insulin REGULAR(*) 1 UNITS UNIT IV PUSH ONE; -Insulin REGULAR(*) 1 UNITS UNIT ONE; -Lidocaine 2% PF * 5 ML VIAL ONE; -Midazolam* 1 MG/ML 10 ML VIAL (10 MG) ONE; -Naloxone* 0.4 MG/ML 1 ML VIAL IV PRN; -Ondansetron INJ* 2 MG/ML VIAL IV PRN; -Phenylephrine INJ* 10 MG/ML 1 ML VIAL (10 MG) ONE; -Propofol* 10 MG/ML 20 ML BTL ONE; -ROPIVACAINE 5 MG/ML 30 ML BTL (0.5%) ONE; -Ropivacaine* 2 MG/ML 20 ML VIAL (0.2%) ONE; -ceFAZolin 2 GM PREMIX in ORs 2 GM/50 ML BAG IVPB ONE; -fentaNYL* 50 MCG/ML 2 ML VIAL (100 MCG VIAL) IV PRN; -fentaNYL* 50 MCG/ML 2 ML VIAL (100 MCG VIAL) ONE; -fentaNYL* 50 MCG/ML 5 ML VIAL (250 MCG VIAL) ONE; -oxyCODONE/Acetamin 5/325 MG* TAB ONE
[2019-03-06] MEDS ORDERED: ceFAZolin 2 GM in NS PREMIX(*) 2 GM/100 ML BAG IVPB ONE ×2 (09:02)
[2019-03-06] MEDS ORDERED: Bupivacaine 0.5% W/EPI SDV* 30 ML VIAL ONE ×2 (11:37)
[2019-03-06] MEDS ORDERED: Lidocaine 1% INJ* 10 MG/ML 30 ML SDV ONE ×2 (11:37)
[2019-03-06] MEDS ORDERED: Midazolam* 1 MG/ML 2 ML VIAL (2 MG) ONE ×2 (11:47)
[2019-03-06] MEDS ORDERED: Propofol* 10 MG/ML 20 ML BTL ONE ×2 (11:58)
[2019-03-06] MEDS ORDERED: Lidocaine 2% PF * 5 ML VIAL ONE ×2 (11:58)
[2019-03-06] MEDS ORDERED: Propofol* 500 MG/50 ML BTL ONE ×2 (11:59)
[2019-03-06] MEDS ORDERED: KETAMINE HCL* 50 MG/ML 10 ML VIAL ONE ×2 (12:00)
[2019-03-06] MEDS ORDERED: Naloxone* 0.4 MG/ML 1 ML VIAL IV PRN (12:19)
[2019-03-06] MEDS ORDERED: Ketorolac INJ* 30 MG/ML 1 ML VIAL IV PRN (12:19)
[2019-03-06] MEDS ORDERED: Ondansetron INJ* 2 MG/ML VIAL IV PRN (12:19)
[2019-03-06] MEDS ORDERED: Acetaminophen TAB* 325 MG PO PRN (12:19)
[2019-03-06] MEDS ORDERED: oxyCODONE TAB* 5 MG TAB PO PRN (12:19)
[2019-03-06] MEDS ORDERED: Ketorolac INJ* 30 MG/ML 1 ML VIAL ONE ×2 (12:40)
[2019-03-06] MEDS ORDERED: oxyCODONE TAB* 5 MG TAB ONE ×2 (12:40)
[2019-03-06 12:51] VITALS: BP 105/66
--- NOTE | 2019-03-06 21:53 | OP ---
CC: Alexandra Jimenes MD OPERATIVE REPORT: DATE OF OPERATION: 03/06/19 DATE OF : 69 SURGEON: Yvon Jimenez MD CASINO SUPERVISOR: None. ANESTHESIOLOGIST: Dr. Schroeder. ANESTHESIA: Local MAC. PRE-OP DIAGNOSIS: Left chest wall mass. POST-OP DIAGNOSIS: Left chest wall mass. OPERATIVE PROCEDURE: Excision of left chest wall mass. ESTIMATED BLOOD LOSS: Minimal. IV FLUIDS: Crystalloid. SPECIMEN: Left chest wall mass. COMPLICATIONS: None. COUNTS: Instrument, needle, sponge counts correct. DESCRIPTION OF PROCEDURE: The patient was brought to the operating room and placed on the table supine. Sequential compression devices were placed in both lower extremities. Intravenous sedation was administered. He was prepped and draped in usual sterile fashion. He received appropriate intravenous antibiotics. A time- out was performed. Local anesthetic was infiltrated into the skin and soft tissue prior to the incision. The incision was created through the previous scar extending further anteriorly. Subcutaneous tissues were divided with cautery and retractors were placed. A mass appeared to be against the chest wall musculature beneath the subcutaneous fat. It appeared as a pale, cystic lobular mass, approximately 4 cm x 3 cm x 2 cm. The mass did not appear to have any vascularity. It was dissected out using combination of blunt and sharp dissection. Upon extraction from the wound the capsule of the mass broke. There was no fluid within. The mass was sent to Pathology in formalin. The site was irrigated and hemostasis assured. The wound was closed in 2 layers with 3-0 Vicryl for the subcutaneous tissues and 4-0 Monocryl for the skin edge. Steri-Strips were applied with dry dressing. The patient tolerated the procedure well, was transferred to [facility] stable. [id number]/[facility] #: [id number] [facility]
== END 2019-03-06 13:29 | disposition home or self-care (01) ==
LOC: OR 08:30
PROVIDERS: ATTEND Surgery
DX: D21.3 Benign neoplasm of connective and other soft tissue of thorax (principal); E11.9 Type 2 diabetes mellitus without complications; Z79.84 Long term (current) use of oral hypoglycemic drugs; E78.5 Hyperlipidemia, unspecified; E66.01 Morbid (severe) obesity due to excess calories; F17.210 Nicotine dependence, cigarettes, uncomplicated; M54.2 Cervicalgia; M25.50 Pain in unspecified joint
CPT/HCPCS: 88271; 88291; 88305; 88341; 88342; 88360; A9270-GY; J0690; J1885; J2250; J2704